=== PATIENT | male | born 1945 | race Caucasian/White ===

== ENCOUNTER 2017-08-20 09:00 | Inpatient (IN) | payer OTHER ==
[~2017-08-20] VITALS: Ht 177.8 cm; Wt 109.2 kg
[2017-09-02] MEDS ORDERED: COQ-50CA2 PO (11:35)
[2017-09-02] MEDS ORDERED: DICL75TA PO (11:35)
[2017-09-02] MEDS ORDERED: AMLO2.5T PO (11:35)
[2017-09-02] MEDS ORDERED: GLUC500T4 PO (11:35)
[2017-09-02] MEDS ORDERED: OMEG100046 PO (11:35)
[2017-09-02] MEDS ORDERED: ATOR20TA15 PO (11:35)
[2017-10-22] MEDS ORDERED: METOPROLOL TARTRATE 25 MG TAB PO PRN (06:15)
[2017-10-22] MEDS ORDERED: POVIDONE IODINE 5% (ANTISEPSIS KIT) 4 APPLICATIONS EACH NARE PRN (06:15)
[2017-10-22] MEDS ORDERED: ceFAZolin 2 GM PREMIX 50 ML IV SCH (06:15)
[2017-10-22] MEDS ORDERED: VANCOMYCIN 1000 MG/NS 250 ML (for <70 kg) IV SCH ×2 (06:15)
[2017-10-22] MEDS ORDERED: CHLORHEXIDINE GLUCONATE 4% SOLN 120 ML BTL TOPICAL SCH (06:15)
[2017-10-22] MEDS ORDERED: SODIUM CHLORID 0.9% 500 ML IV PRN (06:15)
[2017-10-22] MEDS ORDERED: LACTATED RINGER'S 1000 ML IV PRN (06:15)
[2017-10-22] MEDS ORDERED: CHLORHEXIDINE GLUCONATE 2 % 1 PACK (2 CLOTHS) TOPICAL PRN (06:15)
[2017-10-22] MEDS ORDERED: GENTAMICIN SULFATE 80 MG/2 ML VIAL ONE (08:34)
[2017-10-22] MEDS ORDERED: EXPAREL PERI-ARTICULAR INJECTION (TOTAL VOL. 60 ML) P-ARTICULR SCH ×2 (09:15)
[2017-10-22] MEDS ORDERED: TRANEXAMIC ACID IV SCH (09:16)
[2017-10-22] MEDS ORDERED: SODIUM CHLORIDE 0.9% IV SCH (09:16)
[2017-10-22] MEDS ORDERED: ACETAMINOPHEN 1000 MG/100 ML 100 ML IV ONE (09:51)
[2017-10-22] MEDS ORDERED: FAMOTIDINE 20 MG/2 ML VIAL ONE (09:51)
[2017-10-22] MEDS ORDERED: DEXAMETHASONE SOD PHOS 4 MG/ML VIAL ONE (09:51)
[2017-10-22] MEDS ORDERED: ASPI-183 PO (11:32)
[2017-10-22] MEDS ORDERED: XARE10TA PO (11:32)
[2017-10-22] MEDS ORDERED: HYDR-3583 PO (11:32)
[2017-10-22] MEDS ORDERED: WALKER/ADULT/FO1 MIS (11:32)
--- NOTE | 2017-10-22 11:32 | HHI.FF ---
Face to Face Verification Diagnosis: (1) Status post total replacement of right hip Physical Therapy Gait training Hip: Total hip, Protocol: Right Right LE Weight Bearing: WB as tolerated Nursing Dressing Changes: Daily dressing change, Coverderm/Primapore (add Xeroform POD 10) I have seen patient Jimmy Navarro on 10/22/17. My clinical findings support the need for the requested home health care services because: Ltd mobility - disease progression I certify that my clinical findings support that this patient is homebound because: Post-op weakness Jovany Graf/Dean Of Admissions PA Oct 22, 2017 11:32
[2017-10-22] MEDS ORDERED: ONDANSETRON HCL 4 MG/2 ML VIAL IVP PRN (12:00)
[2017-10-22] MEDS ORDERED: Post-op Orders (for Pharmacy) MISC XX ONE (12:00)
[2017-10-22] MEDS ORDERED: MORPHINE SULFATE 4 MG/ML INJ IV PUSH PRN (12:00)
[2017-10-22] MEDS ORDERED: ACETAMINOPHEN/HYDROcodone 325 MG/10 MG TAB PO PRN (12:00)
[2017-10-22] MEDS ORDERED: NALOXONE HCL 0.4 MG/ML AMP IV PUSH PRN (12:00)
--- NOTE | 2017-10-22 12:05 | PD.OP ---
cc: Israel Gray MD Operative Report Date of Surgery: Oct 22, 2017 Preoperative Diagnosis: Right hip osteoarthritis Postoperative Diagnosis: Procedure: Right total hip arthroplasty via anterior approach Anesthesia: Gen. Surgeon: Israel Gray Public Service Director(s): LORY Willingham PA-C The surgical procedure was assisted by my physician transition assistant. My P.A. presence was necessary throughout this case for the manipulation and positioning of the surgical extremity. My P.A. was assisting me throughout the duration of this procedure. The skill set of a physician transition assistant was medically necessary to complete this procedure. During the surgical case the surgical territory manager was working at the back table and the physician transition assistant was directly assisting me. Operation and Findings: PLAN OF ACTIVITY Weight bear as tolerated. DRAINS: 7-mm DIALLO drain. IMPLANTS USED DePuy Corail size [13] collared stem with a size [52] [place] Gription cup, [52 /36] Altrx poly liner, and a [36+1] ceramic Biolox ceramic head. DETAILS OF PROCEDURE: This patient has a long history of hip pain. Patient was found to have severe osteoarthritis. The patient had radiographic evidence of joint space narrowing with [id number] arthritis and osteophytes around the acetabulum as well as the femoral head. There was also some cystic changes. The patient failed conservative treatment with pain medications, anti-inflammatories, physical therapy, assistive devices including a cane, as well as therapeutic injection of the hip. Patient's hip arthritis was limiting his ability to ambulate and perform activities of daily living. The patient wished to proceed with surgery and informed consent was obtained. Operative site was marked. I discussed both posterior approach and anterior approach with the patient and decision was made for anterior approach. Patient was brought to OR and placed on OR table. IV sedation and general anesthesia was administered by anesthesiologist. Patient positioned on a Aliya table and was given IV antibiotics. Time-out procedure was performed. The hip and thigh were prepped with alcohol followed by Hibiclens. The thigh was draped in the usual sterile fashion. Clean Air Suite was used for this procedure. The procedure began with a 5-inch incision over the anterolateral thigh. Subcutaneous tissue was dissected with Bovie. The fascia over the tensa fasciae latae was incised. Care was taken to avoid injury to the lateral femoral cutaneous nerve. The tensor muscle was retracted laterally. Sartorius was retracted medially. Retractors were now placed. The reflected head of the rectus is now elevated. A capsulotomy was performed over the anterior head capsule. Sutures were placed to help retract the capsule. At this point the femoral head and neck were identified. With soft tissue protected, oscillating saw was used to make a cut through the femoral neck, the femoral head was now removed. At this point attention was turned to preparation of the acetabulum. The labrum was excised. The acetabulum was sequentially reamed up to size [52]. A [place] cup was now placed. Fluoroscopy was used to aid in identification of appropriate version. Cup was fully impacted and found to have excellent fit. Hole eliminator was now placed. The liner was now impacted into the cup. At this point the hip was externally rotated. A hook was placed around the proximal femur. The capsule was released off the lateral and medial femur. The hip was now extended and adducted. Retractors were placed around the proximal femur to allow for exposure. A box osteotome was used to remove the lateral cortex of the femoral neck. A broach was used to help lateralize the prosthesis. Canal finder was used to create a path down the canal. Next, the canal was sequentially broached up to size [13]. This was found to be an excellent fit. Calcar planer was placed. A standard head was placed, and the hip was reduced. The hip was found to have excellent stability with good range of motion. The leg lengths were measured under fluoroscopy and found to be equal compared to preoperatively. Trial broach was removed. The Corail stem was opened. Stem was fully impacted into the proximal femur in appropriate version. The femoral head was placed. The hip was again reduced. Fluoroscopy confirmed excellent alignment of prosthesis. The wound was thoroughly irrigated and capsule was closed with #1 Vicryl. The fascia over the tensor fasciae muscle was closed with #1 Vicryl, subcutaneous tissue was closed with 3-0 Vicryl and the skin was closed with gertrudis and Dermabond skin closure. The capsule layers, muscle, and subcutaneous tissue were injected with a mixture of saline and bupivicaine. Dressings were applied. The patient was transferred to Recovery Room in stable condition. Israel Gray MD Oct 22, 2017 12:05
[2017-10-22] MEDS ORDERED: DO NOT ADM ANY ANTICOAGULANT DRUGS PRN (12:29)
[2017-10-22] MEDS ORDERED: *morphine SULFATE 8 MG/ML PERIprocedure ONLY ONE ×2 (12:37→12:51)
[2017-10-22] MEDS ORDERED: PILL SPLITTER OTHER PRN (13:00)
[2017-10-22] MEDS: LACTATED RINGER'S 1000 ML INJ 1,000 ML IV SCH ×2 (13:30→23:57)
[2017-10-22] MEDS: KETOROLAC TROMETHAMINE 30 MG/ML (IVP) VIAL IV PUSH SCH ×2 (13:30→23:56)
[2017-10-22] MEDS ORDERED: TRANEXAMIC ACID INJ 1,000 MG in SODIUM CHLORIDE 0.9% INJ 100 ML IV ONE (13:30)
--- NOTE | 2017-10-22 13:51 | RADRPT ---
EXAM DATE/TIME: 10/22/2017 10:49 [facility] COMPARISON: No previous studies available for comparison. INDICATIONS : Right total hip arthroplasty. MEDICAL HISTORY : Unobtainable. SURGICAL HISTORY : Unobtainable. ENCOUNTER: Initial ACUITY: 1 day PAIN SCORE: Non-responsive. LOCATION: Right hip FINDINGS: The patient is status post a total hip arthroplasty with a bipolar prosthesis. Prosthesis is well-sea corazon. Alignment is anatomic. A fracture is not appreciated. CONCLUSION: Anatomic alignment. Cm Alcala MD FACR on October 22, 2017 at 13:48 Board Certified Radiologist. This report was verified electronically.
--- NOTE | 2017-10-22 13:57 | RADRPT ---
EXAM DATE/TIME: 10/22/2017 12:53 [facility] COMPARISON: HIP RIGHT (AP&LAT 2/3VWS) WO AP PELVIS, October 22, 2017, 10:49. INDICATIONS : Post op right total hip. MEDICAL HISTORY : None. SURGICAL HISTORY : None. ENCOUNTER: Initial ACUITY: 1 day PAIN SCORE: 8/10 LOCATION: Right Hip FINDINGS: The patient is status post a total hip arthroplasty with a bipolar prosthesis. Prosthesis is well-sea corazon. Alignment is anatomic. A fracture is not appreciated. CONCLUSION: Anatomic alignment. Surgical drain is evident. Cm Alcala MD FACR. Cm Alcala MD FACR on October 22, 2017 at 13:54 Board Certified Radiologist. This report was verified electronically.
[2017-10-22 14:40] VITALS: BP 114/68; PULSE 56; RESP 17; TEMP 95.5; O2SAT 97
[2017-10-22] MEDS: ceFAZolin 2 GM PREMIX 50 ML IV SCH ×2 (17:00→23:57)
[2017-10-22] MEDS: ACETAMINOPHEN/HYDROcodone 325 MG/7.5 MG TAB PO PRN (18:08)
[2017-10-22 20:06] VITALS: BP 90/57; PULSE 59; RESP 18; TEMP 97.6; O2SAT 95
[2017-10-22] MEDS ORDERED: ATORVASTATIN 20 MG TAB PO SCH (21:00)
[2017-10-22] MEDS: VANCOMYCIN INJ 1,000 MG in SODIUM CHLOR 0.9% 250 ML INJ 250 ML IV SCH (21:52)
[2017-10-23] VITALS (7 sets, daily range): BP systolic 92–117; BP diastolic 53–66; PULSE 50–72; RESP 17–18; TEMP 96.2–98; O2SAT 94–96
[2017-10-23] MEDS: ceFAZolin 2 GM PREMIX 50 ML IV SCH (05:00)
--- NOTE | 2017-10-23 06:57 | HHI.FF ---
Face to Face Verification Diagnosis: (1) Status post total replacement of right hip Physical Therapy Hip: Total hip, Protocol: Right, Posterior hip precautions Right LE Weight Bearing: WB as tolerated Nursing Dressing Changes: Daily dressing change, Xeroform (begin daily Xeroform on POD 10), Coverderm/Primapore I have seen patient Jimmy Navarro on 10/23/17. My clinical findings support the need for the requested home health care services because: Limited ability to care for self I certify that my clinical findings support that this patient is homebound because: Post-op weakness Estevan Feng Jr. Oct 23, 2017 06:57
--- NOTE | 2017-10-23 07:02 | PD.ORT.PN ---
Subjective Subjective Remarks Doing well with physical therapy. Has been out of bed to the bathroom several times. Drain was pulled accidentally. Mild drainage Objective Vitals Vital Signs Date Time Temp Pulse Resp B/P (MAP) Pulse Ox O2 Delivery O2 Flow Rate FiO2 10/23/17 04:03 97.3 72 18 94/54 (67) 95 10/23/17 01:37 96 home cpap 2.00 10/23/17 00:05 96.2 65 18 92/66 (75) 95 10/22/17 20:06 97.6 59 18 90/57 (68) 95 10/22/17 18:18 2.00 10/22/17 14:40 95.5 56 17 114/68 (83) 97 10/22/17 13:45 60 16 129/69 (89) 96 Nasal Cannula 2 10/22/17 13:30 54 16 124/65 (84) 95 Nasal Cannula 2 10/22/17 13:15 66 16 118/60 (79) 95 Nasal Cannula 2 10/22/17 13:00 58 16 143/60 (87) 94 Nasal Cannula 2 10/22/17 12:45 66 16 105/55 (72) 95 Nasal Cannula 2 10/22/17 12:30 97.5 70 16 111/62 (78) 95 Nasal Cannula 2 10/22/17 07:20 98.2 55 16 155/90 (111) 97 I/O 10/22/17 10/22/17 10/22/17 10/23/17 10/23/17 10/23/17 07:00 15:00 23:00 07:00 15:00 23:00 Intake Total 1200 ml 600 ml Output Total 300 ml 250 ml Balance 900 ml 350 ml Intake Oral 600 ml Other 1200 ml Output Urine Total 250 ml Drainage Total 50 ml Estimated Blood Loss 250 ml # Bowel Movements 0 Imaging Last 24 hours Impressions Hip and Pelvis X-Ray 10/22/17 0817 Signed Impressions: Service Date/Time: Sunday, October 22, 2017 12:53 - CONCLUSION: Anatomic alignment. Surgical drain is evident. Cm Alcala MD Objective Remarks Right lower extremity: Clean dressings with mild drainage. Compartments soft. Distally intact sensation good capillary refills with active dorsal flexion plantar flexion of foot. Mild tenderness with passive internal/external rotation of the hip. Assessment & Plan Assessment and Plan Right total hip arthroplasty anterior approach POD 1 Weightbearing as tolerated with physical therapy twice a day Dry dressings over incision and Xeroform over drain site with reinforced ABDs Lovenox then convert to Xarelto after discharge Case management for home health Incentive spirometry Discharge to home today if doing well with physical therapy Follow-up with Dr. Gray or PA in 2 weeks Estevan Feng Jr. Oct 23, 2017 07:02
[2017-10-23 07:34] LABS: HEMATOCRIT 36.9 % (39.0-51.0); REVIEW FLAG FINAL
[2017-10-23] MEDS ORDERED: amLODIPine BESYLATE 5 MG TAB PO SCH (09:00)
[2017-10-23] MEDS: VANCOMYCIN INJ 1,000 MG in SODIUM CHLOR 0.9% 250 ML INJ 250 ML IV SCH (10:08)
[2017-10-23] MEDS: ACETAMINOPHEN/HYDROcodone 325 MG/7.5 MG TAB PO PRN ×2 (10:19→15:30)
[2017-10-23] MEDS ORDERED: ENOXAPARIN SODIUM 40 MG/0.4 ML SYRINGE SQ SCH (11:30)
[2017-10-23] MEDS: KETOROLAC TROMETHAMINE 30 MG/ML (IVP) VIAL IV PUSH SCH (12:38)
[2017-10-23] MEDS: LACTATED RINGER'S 1000 ML INJ 1,000 ML IV SCH (12:59)
[2017-10-23] MEDS ORDERED: MAGNESIUM HYDROXIDE SUSP 30 ML CUP PO ONE (15:15)
[2017-10-23] MEDS ORDERED: DOCUSATE SODIUM 100 MG CAP PO SCH (21:00)
--- NOTE | 2017-10-24 07:27 | HHI.DS ---
Discharge Summary Admission Date Oct 22, 2017 at 05:50 Discharge Date: Oct 23, 2017 Admitting Diagnosis Right hip osteoarthritis Diagnosis: (1) Status post total replacement of right hip Diagnosis: Principal ICD Codes: Z96.641 - Presence of right artificial hip joint Procedures Right anterior total hip arthroplasty CBC/BMP: 10/23/17 0659 Significant Findings Laboratory Tests Test 10/23/17 06:59 Hemoglobin 12.6 GM/DL (13.0-17.0) Hematocrit 36.9 % (39.0-51.0) PE at Discharge Right lower extremity: Clean dressings with mild drainage. Compartments soft. Distally intact sensation good capillary refills with active dorsal flexion plantar flexion of foot. Mild tenderness with passive internal/external rotation of the hip. Hospital Course Patient was admitted from outpatient basis for elective right total hip arthroplasty. He has a significant history of right hip osteoarthritis and has failed conservative treatment which include anti-inflammatories, activity modification, and intra-articular steroid injections. He tolerated the procedure well was admitted 6 north. He was out of bed on postoperative day 0 was ambulating with therapy. By postoperative day 1, his pain was well- controlled he was out of bed with a walker. He was he will nailing stable, pain well controlled ambulating well with therapy. He was fit for discharge home with home healthcare. He'll be discharged home today in follow-up in the office of Dr. Gray or his PA in 2 weeks. He'll remain fully weightbearing. He'll or come ambulating further distances. He'll maintain his dressing and not have any dressing changes due to the nature of his dressing. Pt Condition on Discharge: Good Discharge Disposition: Disch w/ Home Health Serv Discharge Instructions Diet Instructions: As Tolerated, No Restrictions Activities You Can Perform: Weight Bearing as [place] Follow up Referrals: Orthopedics - 2 Weeks @ [facility] with Israel Gray MD SNF/[facility]/ with [facility] - [phone] New Medications: Aspirin (Aspirin) 325 Mg Tab 325 MG PO DAILY for blood clot prevention, #14 TAB 0 Refills Hydrocodone-Acetaminophen (Hydrocodone-Acetaminophen) 10-325 mg Tab 1 TAB PO Q4H PRN for PAIN, #60 TAB 0 Refills Rivaroxaban (Xarelto) 10 Mg Tab 10 MG PO DAILY for Blood Clot Prevention for 14 Days, #14 TAB 0 Refills Walker/Adult/Folding (Walker/Adult/Folding) 1 Mis Mis EA .ROUTE DIRECTED, #1 0 Refills Continued Medications: Amlodipine (Amlodipine) 2.5 Mg Tab 2.5 MG PO DAILY for Blood Pressure Management, #30 TAB 0 Refills Atorvastatin (Atorvastatin) 20 Mg Tab 20 MG PO HS for Cholesterol Management, #30 TAB 0 Refills Coenzyme Q10 (Ubidecarenone) (Coq-10) 50 Mg Cap 1 CAP PO DAILY Glucosamine-Chondroitin (Glucosamine-Chondroitin) 500-400 Mg Tab 1 TAB PO DAILY for Herbal Supplements, TAB 0 Refills [place]-3/Dha/Epa/Fish Oil (Fish Oil 1,000 mg Softgel) 1,000 Mg (120 Mg-180 Mg) Capsule 1 CAP PO DAILY Discontinued Medications: Diclofenac Sodium DR (Diclofenac Sodium DR) 75 Mg Tabdr 75 MG PO DAILY, #30 TAB 0 Refills Jovany Graf/First Swapnil BROOKS Oct 24, 2017 07:27
== END 2017-10-23 19:14 | disposition home health service (06) | DRG 470 ==
LOC: EDUNIT# 09-10 07:00 → HSDI 10-22 05:50 → N06B 10-22 14:47
PROVIDERS: ADMIT Orthopaedic Surgery Orthopaedic Trauma; ATTEND Orthopaedic Surgery Orthopaedic Trauma
PROC: 0SR904A Replacement of Right Hip Joint with Ceramic on Polyethylene Synthetic Substitute, Uncemented, Open Approach (ICD-10-PCS; principal; 2017-10-22 10:14)
DX: M16.11 Unilateral primary osteoarthritis, right hip (principal); I10 Essential (primary) hypertension; E78.5 Hyperlipidemia, unspecified; G47.30 Sleep apnea, unspecified; Z87.891 Personal history of nicotine dependence
CPT/HCPCS: 73501; 73502; 76000; 85014; 85018; 86850; 86900; 86901; C9290; J0131; J0690; J1100; J1580; J1650; J1885; J2270; J3370; J7050; J7120; L1830

== ENCOUNTER → 2017-09-02 | Outpatient (CLI) | payer OTHER ==
[~2017-09-02] MED LIST: AMLO2.5T PO; ATOR20TA15 PO; COQ-50CA2 PO; DICL75TA PO; GLUC500T4 PO; OMEG100046 PO
== END ==
LOC: CPRE 11:16
PROVIDERS: ATTEND Orthopaedic Surgery Orthopaedic Trauma
DX: Z01.810 Encounter for preprocedural cardiovascular examination (principal); Z01.811 Encounter for preprocedural respiratory examination; Z01.812 Encounter for preprocedural laboratory examination; Z01.818 Encounter for other preprocedural examination; Z96.60 Presence of unspecified orthopedic joint implant; Z13.9 Encounter for screening, unspecified; Z79.01 Long term (current) use of anticoagulants; M79.609 Pain in unspecified limb

== ENCOUNTER 2017-10-27 09:10 | Emergency (ER) | payer OTHER ==
[~2017-10-27] VITALS: Ht 177.8 cm; Wt 105.0 kg
[~2017-10-27 09:10] MED LIST changes: +ASPI-183 PO; -DICL75TA PO; +HYDR-3583 PO; +WALKER/ADULT/FO1 MIS; +XARE10TA PO
[2017-10-27 09:13] VITALS: BP 176/89; PULSE 61; RESP 14; TEMP 98.1; O2SAT 95
--- NOTE | 2017-10-27 09:48 | PD ---
HPI Chief Complaint: irregular heartbeat Time Seen by Provider: 09:34 Travel History International Travel<30 days: No Contact w/Intl Traveler<30days: No Traveled to known affect area: No History of Present Illness HPI This patient presents because the home health nurse came to check on him. He recently had right hip replacement. They felt like his heartbeat was irregular when they checked his pulse. He does not have chest pain or shortness of breath or palpitations or presyncopal symptoms. He feels relatively well other than some soreness in his right hip. He is ambulatory. He had preoperative studies including echocardiogram and stress test in August 2017. Symptoms severity today here is mild. No alleviating factors. No exacerbating factors. Duration 3 days PFSH Past Medical History Heart Rhythm Problems: Yes (frequent pvc's pac's) Cancer: No Cardiovascular Problems: Yes (murmur) Diabetes: No Endocrine: No Genitourinary: No Hepatitis: No Hiatal Hernia: No Hypertension: Yes Immune Disorder: No Medical other: Yes (chol) Musculoskeletal: Yes (OA) Neurologic: No Psychiatric: No Reproductive: No Respiratory: No Thyroid Disease: No Past Surgical History Abdominal Surgery: No AICD: No Cardiac Surgery: No Ear Surgery: No Endocrine Surgery: No Eye Surgery: No Genitourinary Surgery: Yes (KIDNEY STONE REMOVAL) Gynecologic Surgery: Yes (vesectomy) Joint Replacement: No Oral Surgery: Yes (T/A) Pacemaker: No Thoracic Surgery: No Other Surgery: Yes Social History Alcohol Use: No (not for a couple weeks) Tobacco Use: No Substance Use: No Allergies-Medications (Allergen,Severity, Reaction): Coded Allergies: Sulfa (Sulfonamide Antibiotics) (Verified Allergy, Severe, RASH, 10/27/17) Reported Meds & Prescriptions Reported Meds & Active Scripts Active Xarelto (Rivaroxaban) 10 Mg Tab 10 Mg PO DAILY 14 Days Hydrocodone-Acetaminophen 10-325 mg Tab 1 Tab PO Q4H PRN Walker/Adult/Folding (Device) 1 Mis Mis Ea .ROUTE DIRECTED Reported Amlodipine (Amlodipine Besylate) 2.5 Mg Tab 2.5 Mg PO DAILY Review of Systems General / Constitutional: No: Fever Eyes: No: Visual changes HENT: No: Headaches Cardiovascular: Positive: Irregular Rhythm, No: Chest Pain or Discomfort Respiratory: No: Shortness of Breath Gastrointestinal: No: Abdominal Pain Genitourinary: No: Dysuria Musculoskeletal: Positive: Arthralgias, Limited ROM, Pain Skin: No Rash Neurologic: No: Weakness Psychiatric: No: Depression Endocrine: No: Polydipsia Hematologic/Lymphatic: No: Easy Bruising Physical Exam Narrative GENERAL: Well-nourished, well-developed patient in no apparent distress. SKIN: Focused skin assessment reveals no rash and nodules. Skin is Warm and dry. HEAD: Atraumatic. Normocephalic. EYES: Pupils equal and round. No scleral icterus. No injection or drainage. ENT: No nasal bleeding or discharge. Mucous membranes pink and moist. NECK: Trachea midline. No JVD. CARDIOVASCULAR: Regular rate and rhythm. No murmur appreciated. He has PVCs, corresponding with quadrigeminy on the pipe fitter soft copper RESPIRATORY: No accessory muscle use. Clear to auscultation. Breath sounds equal bilaterally. GASTROINTESTINAL: Abdomen soft, non-tender, nondistended. Hepatic and splenic margins not palpable. MUSCULOSKELETAL: No obvious deformities. No clubbing. No cyanosis. No edema. NEUROLOGICAL: Awake and alert. No obvious cranial nerve deficits. Motor grossly within normal limits. Normal speech. PSYCHIATRIC: Appropriate mood and affect; insight and judgment normal. Data Data Last Documented VS Vital Signs Date Time Temp Pulse Resp B/P (MAP) Pulse Ox O2 Delivery O2 Flow Rate FiO2 10/27/17 09:22 18 Room Air 10/27/17 09:13 98.1 61 176/89 (118) 95 Orders Orders Electrocardiogram (10/27/17 ) Community Recreation Coordinator / Telemetry [email or web address] (10/27/17 09:34) Iv Access Insert/Monitor (10/27/17 09:34) Complete Blood Count With Diff (10/27/17 09:34) Basic Metabolic Panel (Bmp) (10/27/17 09:34) Labs Laboratory Tests Test 10/27/17 09:37 White Blood Count 7.7 TH/MM3 Red Blood Count 4.09 MIL/MM3 Hemoglobin 12.9 GM/DL Hematocrit 36.9 % Mean Corpuscular Volume 90.2 FL Mean Corpuscular Hemoglobin 31.5 PG Mean Corpuscular Hemoglobin Concent 34.9 % Red Cell Distribution Width 13.0 % Platelet Count 179 TH/MM3 Mean Platelet Volume 8.3 FL Neutrophils (%) (Auto) 69.1 % Lymphocytes (%) (Auto) 15.1 % Monocytes (%) (Auto) 10.8 % Eosinophils (%) (Auto) 4.6 % Basophils (%) (Auto) 0.4 % Neutrophils # (Auto) 5.3 TH/MM3 Lymphocytes # (Auto) 1.2 TH/MM3 Monocytes # (Auto) 0.8 TH/MM3 Eosinophils # (Auto) 0.4 TH/MM3 Basophils # (Auto) 0.0 TH/MM3 CBC Comment DIFF FINAL Differential Comment Blood Urea Nitrogen 16 MG/DL Creatinine 0.99 MG/DL Random Glucose 103 MG/DL Calcium Level 8.5 MG/DL Sodium Level 136 MEQ/L Potassium Level 4.5 MEQ/L Chloride Level 102 MEQ/L Carbon Dioxide Level 28.9 MEQ/L Anion Gap 5 MEQ/L Estimat Glomerular Filtration Rate 75 ML/MIN [facility] Medical Decision Making Medical Screen Exam Complete: Yes Emergency Medical Condition: Yes Medical Record Reviewed: Yes Differential Diagnosis A. fib, PVCs, SVT, anxiety, electrolyte abnormality Narrative Course I have reviewed the patient's electronic medical record. Reviewed his orthopedic discharge summary from a week ago IV placed CBC is normal Metabolic profile is normal I reviewed his EKG which shows sinus rhythm with occasional PVC Extended cardiac monitoring reveals quadrigeminy at times and also sinus rhythm with occasional PVC Patient has not had any chest pain or ACS type symptoms. He also had recent stress testing. His ejection fraction is normal. Recent echo was done. 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 Med/Other Pt SpecificInfo: Other Disposition: 01 DISCHARGE HOME Condition: Stable Al Quesada MD Oct 27, 2017 09:47
[2017-10-27 09:55] LABS: AUTOMATED NEUTROPHIL # 5.3 TH/MM3 (1.8-7.7); BASOPHIL % 0.4 % (0.0-2.0); EOSINOPHIL # 0.4 TH/MM3 (0-0.4); EOSINOPHIL % 4.6 % (0.0-4.0); HEMATOCRIT 36.9 % (39.0-51.0); HEMO FLAGS DIFF FINAL; LYMPH % 15.1 % (9.0-44.0); LYMPHOCYTE # 1.2 TH/MM3 (1.0-4.8); MEAN CELL VOLUME 90.2 FL (80.0-100.0); MEAN CORPUSCULAR HEMOGLOBIN 31.5 PG (27.0-34.0); MEAN CORPUSCULAR HGB CONC 34.9 % (32.0-36.0); MONO % 10.8 % (0.0-8.0); NEUT % 69.1 % (16.0-70.0); PLATELET COUNT 179 TH/MM3 (150-450); RED BLOOD COUNT 4.09 MIL/MM3 (4.50-5.90); WHITE BLOOD COUNT 7.7 TH/MM3 (4.0-11.0)
[2017-10-27 10:21] LABS: BICARBONATE 28.9 MEQ/L (21.0-32.0); POTASSIUM 4.5 MEQ/L (3.5-5.1)
--- NOTE | 2017-10-28 17:42 | EKG ---
Date Performed: 10/27/2017 Time Performed: 09:28:45 PTAGE: 72 years EKG: Sinus rhythm WITH OCCASIONAL VENTRICULAR PREMATURE COMPLEXES NONSPECIFIC ST & T-WAVE ABNORMALITY ABNORMAL ECG NO PREVIOUS TRACING DOCTOR: Domingo Mello Interpretating Date/Time 10/28/2017 17:40:59
== END 2017-10-27 11:43 | disposition home or self-care (01) ==
LOC: NEPE 09:10
DX: I49.3 Ventricular premature depolarization (principal); I10 Essential (primary) hypertension; R94.31 Abnormal electrocardiogram [ECG] [EKG]
CPT/HCPCS: 80048; 85025; 93005; 99284

== ENCOUNTER 2019-01-09 13:58 | Observation (INO) ==
[2019-01-09] MEDS ORDERED: Sod Chloride 0.9% Inj 1,000 ML IV.SIG ONE (15:41)
[2019-01-09 16:26] LABS: Baso % (Auto) 0.4 % (0.0-2.0); Eos # (Auto) 0.2 th/mm3 (0.0-0.4); Eos % (Auto) 2.1 % (0.0-4.0); Hematocrit 37.7 % (39.0-51.0); Hemoglobin 12.9 gm/dL (13.0-17.0); Lymph # (Auto) 0.8 th/mm3 (1.0-4.8); Lymph % (Auto) 8.8 % (9.0-44.0); Mean Corpuscular HGB Conc 34.3 % (32.0-36.0); Mean Corpuscular Hemoglobin 30.6 pg (27.0-34.0); Mean Corpuscular Volume 89.4 fL (80.0-100.0); Mean Platelet Volume 7.9 fL (7.0-11.0); Mono # (Auto) 0.6 th/mm3 (0.0-0.9); Mono % (Auto) 6.4 % (0.0-8.0); Neut # (Auto) 7.9 th/mm3 (1.8-7.7); Neut % (Auto) 82.3 % (16.0-70.0); Platelet Count 178 th/mm3 (150-450); Red Blood Count 4.22 mil/mm3 (4.50-5.90); Red Cell Distribution Width 13.4 % (11.6-17.2); White Blood Count 9.6 th/mm3 (4.0-11.0)
[2019-01-09 16:36] LABS: Activated Partial Thrombo Time 23.8 sec (23.4-31.7)
[2019-01-09 16:48] LABS: Alanine Aminotransferase 24 U/L (12-78); Albumin 3.5 g/dL (3.4-5.0); Anion Gap 8 meq/L (5-15); Aspartate Aminotransferase 36 U/L (15-37); Blood Urea Nitrogen 26 mg/dL (7-18); Calcium 7.9 mg/dL (8.5-10.1); Carbon Dioxide 24.2 meq/L (21.0-32.0); Chloride 108 meq/L (98-107); Glomerular Filtration Rate 60 mL/min (>89); Glucose,Random 98 mg/dL (74-106); Lipase 111 U/L (73-393); Magnesium 2.3 mg/dL (1.5-2.5); Potassium 4.8 meq/L (3.5-5.1); Sodium 140 meq/L (136-145)
[2019-01-09 16:51] LABS: Alkaline Phosphatase 74 U/L (45-117)
[2019-01-09 17:30] LABS: Bilirubin,Urine Negative (Negative); Clarity,Urine Clear (Clear); Color,Urine Yellow (Yellw/Straw); Glucose,Urine (UA) Negative (Negative); Leukocyte Esterase,Urine Trace (Negative); Mucus,Urine Few /lpf (Occasional); Nitrite,Urine Negative (Negative); Specific Gravity,Urine 1.025 (1.002-1.035)
--- NOTE | 2019-01-09 17:42 | CT ---
EXAM DATE: 01/09/2019 5:36 PM EST AGE/SEX: 73 years / Male INDICATIONS: Abdominal pain. Diarrhea. CLINICAL DATA: This is the patient's initial encounter. Patient reports that signs and symptoms have been present for 1 day and indicates a pain score of 3/10. MEDICAL/SURGICAL HISTORY: Hypertension. None. ORAL CONTRAST: No oral contrast ingested. RADIATION DOSE: 16.50 CTDI (mGy) COMPARISON: No prior exams available for comparison. TECHNIQUE: Multiple contiguous axial images were obtained through the abdomen and pelvis following b olus infusion of 100 ml Omnipaque 350 (iohexol) nonionic water-soluble contrast as a single exam do se. No oral contrast ingested. Using automated exposure control and adjustment of the mA and/or kV a ccording to patient size, radiation dose was kept as low as reasonably achievable to obtain optimal d iagnostic quality images. DICOM format image data is available electronically for review and compari son. FINDINGS: Abdomen CT: The spleen, pancreas, adrenals are unremarkable. There are simple cysts in both kidneys the largest m easures 4.2 cm on the right. The liver appears fatty without focal lesions for technique. There is no evidence for any appreciabl e pathological adenopathy, free fluid, or bowel obstruction. There is prominent fat underneath the um bilicus without evidence for bowel herniation. Tiny pericardial effusion is seen probably of no clini sonam significance. Pelvic CT: There is no evidence for mass, abscess formation, or any significant adenopathy within the pelvis. Th ere are numerous diverticuli within the colon mainly the sigmoid colon without signs of diverticuliti s for technique. There are hypertrophic changes involving the left iliac bone chronic in nature. Ther e is evidence for total hip arthroplasty on the right. There are atherosclerotic calcifications invol ving the aorta and iliac arteries chronic in nature. There is moderate amount of stool in the colon. There is prominent fat within bilateral inguinal sherry ls without evidence for bowel herniation. The prostate gland measures 4.5 x 5.7 cm in AP and transverse diameters inhomogeneous in appearance a nd nonspecific. CONCLUSION: Fatty liver, diverticulosis, renal cysts. Electronically signed by: Val Rico MD Board Certified Radiologist 01/09/2019 5:41 PM EST
--- NOTE | 2019-01-09 19:32 | ED ---
HPI General Chief complaint: GI Bleed Stated complaint: GI/Weakness Complaint Time Seen by Provider: 01/09/19 15:23 Source: patient Mode of arrival: ambulatory Limitations: no limitations History of Present Illness HPI narrative: Patient is a 73-year-old male who comes in complaining of blood in his stool. He says that today he had 3 episodes of bloody diarrhea. He says he started to feel weak and dizzy afterwards. He also complains of some left lower quadrant abdominal pain. He says he was diagnosed with diverticulitis about 20 years ago, has not had an issue with it since. He denies fever or chills. He has not had any nausea or vomiting. Severity is moderate. Related Data Home Medications Medication Instructions Recorded Confirmed amlodipine 2.5 mg PO DAILY 01/09/19 01/09/19 aspirin [Aspir-81] 81 mg PO DAILY 01/09/19 01/09/19 Allergies Allergy/AdvReac Type Severity Reaction Status Date / Time Sulfa (Sulfonamide Allergy Severe RASH Verified 01/09/19 14:13 Antibiotics) Review of Systems ROS: all other systems reviewed are negative Constitutional Denies chills and Denies fever(s) ENT Denies dizziness Cardiovascular Denies chest pain and Denies dyspnea Respiratory Denies cough and Denies dyspnea Gastrointestinal Reports abdominal pain and Reports diarrhea Musculoskeletal Denies myalgias and Denies arthralgias Integumentary/Breasts Denies sores and Denies wounds Neurologic Denies focal weakness and Denies numbness [facility] Medical History Medical History Hypertension (Acute) Social History Social History Substance History: No History of Abuse Smoking Status: Never smoker How Often Do You Have a Drink Containing Alcohol: Never Recent Travel in [facility] within the Last 8 Weeks: No Recent Out of Country Travel within the Last 8 Weeks: No Immunization History Tetanus Immunization: <5 Years Exam Narrative Exam Narrative: GENERAL: Awake and alert, in no acute distress. SKIN: Focused skin assessment warm/dry. HEAD: Atraumatic. Normocephalic. EYES: Pupils equal and round. No scleral icterus. No injection or drainage. ENT: No nasal bleeding or discharge. Mucous membranes pink and moist. NECK: Trachea midline. No JVD. CARDIOVASCULAR: Regular rate and rhythm. No murmur appreciated. RESPIRATORY: No accessory muscle use. Clear to auscultation. Breath sounds equal bilaterally. GASTROINTESTINAL: Abdomen soft, nondistended. Tender to palpation of the LLQ. MUSCULOSKELETAL: No obvious deformities. No clubbing. No cyanosis. No edema. NEUROLOGICAL: Awake and alert. No obvious cranial nerve deficits. Motor grossly within normal limits. Normal speech. PSYCHIATRIC: Appropriate mood and affect; insight and judgment normal. Procedures Hemaprompt Stool Procedural Steps Taken: specimen placed in appropriate test area, developer placed on specimen and control areas and controls appropriately positive and negative Hemaprompt Stool Result: positive Additional Comments: bright red blood Course Initial Documented Vital Signs Temperature 97.5 F L 01/09/19 14:11 Pulse Rate 71 01/09/19 14:11 Respiratory Rate 20 01/09/19 14:11 Blood Pressure 106/54 L 01/09/19 14:11 Pulse Oximetry 96 01/09/19 14:11 Last Documented Vital Signs Temperature 97.5 F L 01/09/19 14:11 Pulse Rate 66 01/09/19 18:19 Respiratory Rate 18 01/09/19 18:19 Blood Pressure 128/75 01/09/19 18:19 Pulse Oximetry 98 01/09/19 18:19 Medical Decision Making MDM Narrative Medical decision making narrative: Patient is a 73-year-old male who comes in complaining of bloody diarrhea. Exam shows right red blood per rectum. IV established, labs sent. Labs show a hemoglobin of 12.9. CT abdomen pelvis performed shows diverticulosis without diverticulitis. I feel patient would benefit from observation stay to make sure he does not continue to bleed. Patient admitted for further management. Medical Screen Exam Complete: Yes Emergency Medical Condition: Yes Differential Diagnosis Differential Diagnosis: GI bleed versus diverticulitis versus colitis Medical Records Medical records reviewed: Yes I reviewed the patient's medical records. Lab Data Lab results reviewed: Yes I reviewed the patient's lab results. Result diagrams: 01/09/19 15:50 01/09/19 15:50 Lab Results 01/09/19 01/09/19 01/09/19 Range/Units 15:50 15:50 15:50 WBC 9.6 (4.0-11.0) th/mm3 RBC 4.22 L (4.50-5.90) mil/mm3 Hgb 12.9 L (13.0-17.0) gm/dL Hct 37.7 L (39.0-51.0) % MCV 89.4 (80.0-100.0) fL MCH 30.6 (27.0-34.0) pg MCHC 34.3 (32.0-36.0) % RDW 13.4 (11.6-17.2) % Plt Count 178 (150-450) th/mm3 MPV 7.9 (7.0-11.0) fL Neut % (Auto) 82.3 H (16.0-70.0) % Lymph % (Auto) 8.8 L (9.0-44.0) % Calhoun % (Auto) 6.4 (0.0-8.0) % Eos % (Auto) 2.1 (0.0-4.0) % Baso % (Auto) 0.4 (0.0-2.0) % Neut # (Auto) 7.9 H (1.8-7.7) th/mm3 Lymph # (Auto) 0.8 L (1.0-4.8) th/mm3 Calhoun # (Auto) 0.6 (0.0-0.9) th/mm3 Eos # (Auto) 0.2 (0.0-0.4) th/mm3 Baso # (Auto) 0.0 (0.0-0.2) th/mm3 WBC Differential . Differential Comment Auto diff final PT 10.0 (9.8-11.6) sec INR 1.0 Ratio APTT 23.8 (23.4-31.7) sec Sodium 140 (136-145) meq/L Potassium 4.8 (3.5-5.1) meq/L Chloride 108 H (98-107) meq/L Carbon Dioxide 24.2 (21.0-32.0) meq/L Anion Gap 8 (5-15) meq/L BUN 26 H (7-18) mg/dL Creatinine 1.19 (0.60-1.30) mg/dL Estimated GFR 60 L (>89) mL/min Random Glucose 98 (74-106) mg/dL Calcium 7.9 L (8.5-10.1) mg/dL Magnesium 2.3 (1.5-2.5) mg/dL Total Bilirubin 0.7 (0.2-1.0) mg/dL AST 36 (15-37) U/L ALT 24 (12-78) U/L Alkaline Phosphatase 74 (45-117) U/L Total Protein 7.0 (6.4-8.2) g/dL Albumin 3.5 (3.4-5.0) g/dL Lipase 111 (73-393) U/L Urine Color (Yellw/Straw) Urine Clarity (Clear) Urine pH (5.0-8.5) Ur Specific Nesbit (1.002-1.035) Urine Protein (Neg-Trace) mg/dL Urine Glucose (UA) (Negative) mg/dL Urine Ketones (Negative) mg/dL Urine Occult Blood (Negative) Urine Nitrate (Negative) Urine Bilirubin (Negative) Urine Urobilinogen (Less than 2) mg/dL Ur Leukocyte Esterase (Negative) Urine WBC (0-5) /hpf Urine Mucus (Occasional) /lpf Micro UA Comment Ur Microscopic Review Urine Culture Comments 01/09/19 Range/Units 16:42 WBC (4.0-11.0) th/mm3 RBC (4.50-5.90) mil/mm3 Hgb (13.0-17.0) gm/dL Hct (39.0-51.0) % MCV (80.0-100.0) fL MCH (27.0-34.0) pg MCHC (32.0-36.0) % RDW (11.6-17.2) % Plt Count (150-450) th/mm3 MPV (7.0-11.0) fL Neut % (Auto) (16.0-70.0) % Lymph % (Auto) (9.0-44.0) % Calhoun % (Auto) (0.0-8.0) % Eos % (Auto) (0.0-4.0) % Baso % (Auto) (0.0-2.0) % Neut # (Auto) (1.8-7.7) th/mm3 Lymph # (Auto) (1.0-4.8) th/mm3 Calhoun # (Auto) (0.0-0.9) th/mm3 Eos # (Auto) (0.0-0.4) th/mm3 Baso # (Auto) (0.0-0.2) th/mm3 WBC Differential Differential Comment PT (9.8-11.6) sec INR Ratio APTT (23.4-31.7) sec Sodium (136-145) meq/L Potassium (3.5-5.1) meq/L Chloride (98-107) meq/L Carbon Dioxide (21.0-32.0) meq/L Anion Gap (5-15) meq/L BUN (7-18) mg/dL Creatinine (0.60-1.30) mg/dL Estimated GFR (>89) mL/min Random Glucose (74-106) mg/dL Calcium (8.5-10.1) mg/dL Magnesium (1.5-2.5) mg/dL Total Bilirubin (0.2-1.0) mg/dL AST (15-37) U/L ALT (12-78) U/L Alkaline Phosphatase (45-117) U/L Total Protein (6.4-8.2) g/dL Albumin (3.4-5.0) g/dL Lipase (73-393) U/L Urine Color Yellow (Yellw/Straw) Urine Clarity Clear (Clear) Urine pH 5.0 (5.0-8.5) Ur Specific Nesbit 1.025 (1.002-1.035) Urine Protein Negative (Neg-Trace) mg/dL Urine Glucose (UA) Negative (Negative) mg/dL Urine Ketones Negative (Negative) mg/dL Urine Occult Blood Negative (Negative) Urine Nitrate Negative (Negative) Urine Bilirubin Negative (Negative) Urine Urobilinogen Less than 2 (Less than 2) mg/dL Ur Leukocyte Esterase Trace H (Negative) Urine WBC 1 (0-5) /hpf Urine Mucus Few H (Occasional) /lpf Micro UA Comment Culture not ind Ur Microscopic Review Not Reportable Urine Culture Comments Culture not ind Imaging Data Radiologist's impression: Abdomen/Pelvis CT 01/09/19 15:41 CONCLUSION: Fatty liver, diverticulosis, renal cysts. Discharge Plan Discharge Disposition Patient Disposition: ED Admit(ED Internal Use Only) Discharge Condition Condition: Stable Discharge Order Discharge Orders: ED Use Only Admit Order (Routine); Ordered 01/09/19 Ordered By: Samreen Vega Discharge Details Diagnosis: Lower gastrointestinal hemorrhage, Diverticulosis Physicians Team ED Provider: Samreen Vega Primary Care Provider: [facility] Attending Provider: Marilu David Discharge Interventions Interventions: Vital Signs Last Done: 01/09/19 18:19 Status ED Status: Admitted Observation Patient
[2019-01-09] MEDS ORDERED: Acetaminophen 325 MG Tablet PO PRN (19:34)
[2019-01-09] MEDS ORDERED: Bisacodyl 10 MG Supp RECTAL PRN (19:34)
--- NOTE | 2019-01-09 19:36 | P.HPIM ---
History of Present Illness Primary Care Physician: [facility] History of Present Illness: This is a 73-year-old male with a PMH of HTN who presented to ER with complaints of BRBPR starting today. States he was feeling well, then developed acute onset abdominal cramping in LLQ followed by BRBPR and diaphoresis w/ nausea. Notes 4 episodes of bloody stool so far today. No h /o similar symptoms. On ASA at home. On arrival, BP 106/54, HR 71, O2 sat 96% on RA, Afebrile. Hemoglobin 12.9, previously 12.9 on 10/27/2017. INR 1.0. Chemistry essentially unremarkable except for GFR 60. UA negative. CT Abdomen/ Pelvis fatty liver, diverticulosis and renal cysts. Hemoccult +. Diagnosis (1) Lower GI bleed: (2) Anemia: (3) HTN (hypertension): Review of Systems PAST FAMILY HISTORY: Reviewed. No h/o DM or CAD Review of Systems: all other systems reviewed are negative [facility] Medical History Medical History Hypertension (Acute) Social History Social History Substance History: No History of Abuse Smoking Status: Never smoker How Often Do You Have a Drink Containing Alcohol: Never Recent Travel in [facility] within the Last 8 Weeks: No Recent Out of Country Travel within the Last 8 Weeks: No Immunization History Tetanus Immunization: <5 Years Medications and Allergies Allergies Allergy/AdvReac Type Severity Reaction Status Date / Time Sulfa (Sulfonamide Allergy Severe RASH Verified 01/09/19 14:13 Antibiotics) Home Medications Medication Instructions Recorded Confirmed Type amlodipine 2.5 mg PO DAILY 01/09/19 01/09/19 History aspirin [Aspir-81] 81 mg PO DAILY 01/09/19 01/09/19 History Active Medications: Active Medications Acetaminophen (Tylenol) 650 mg PO Q4H PRN PRN Reason: Temp > 100.4 Bisacodyl (Dulcolax Supp) 10 mg RECTAL DAILY PRN PRN Reason: SEVERE CONSITIPATION Non-Formulary Medication (Amlodipine [Amlodipine]) 2.5 mg PO DAILY XIAO Sodium Chloride (Ns Flush) 2 ml IV.FLUSH PRN PRN PRN Reason: FLUSH AFTER USING IV ACCESS Physical Exam Vital signs: Vital Signs 01/09/19 14:11 01/09/19 15:36 01/09/19 18:19 Temperature 97.5 F L Pulse Rate 71 80 66 Respiratory Rate 20 22 18 Blood Pressure 106/54 L 115/60 128/75 Pulse Oximetry 96 99 98 Intake & Output 01/09/19 01/09/19 01/10/19 06:59 18:59 06:59 Intake Total 1000 / 1000 Balance 1000 / 1000 Weight 110.677 kg Intake: IV 1000 / 1000 NS Inj 1,000 ML @ Wide Open IV. 1000 / 1000 SIG BOLUS ONE Rx#:[id number] Narrative: PE: GENERAL: Very pleasant middle-aged white male in no acute distress. If at bedside. SKIN: Focused skin assessment warm and dry. HEENT: PERRLA, EOMI. No scleral icterus or conjunctival pallor. No lid lag or facial droop. CARDIOVASCULAR: Regular rate and rhythm. No obvious murmurs to auscultation. No chest tenderness to palpation. RESPIRATORY: No obvious rhonchi or wheezing. Clear to auscultation. Breath sounds equal bilaterally. GASTROINTESTINAL: Abdomen soft, LLQ tenderness to palpation, nondistended. BS normal. MUSCULOSKELETAL: Extremities without clubbing, cyanosis, or edema. No obvious deformities. NEUROLOGICAL: Awake, alert and oriented x4. No focal neurologic deficits. Moving both upper and lower extremities spontaneously. PSYCHIATRIC: Appropriate mood and affect. Insight and judgment normal. Results Labs CBC & Chem 7: 01/09/19 15:50 01/09/19 15:50 Imaging Impressions Abdomen/Pelvis CT 01/09/19 15:41 CONCLUSION: Fatty liver, diverticulosis, renal cysts. Caprini VTE Risk Assessment Caprini VTE Risk Assessment: No/Low Risk (score <= 1) VTE Pharmacological Exception Reason: Active bleeding Caprini Risk Assessment Model: Point Value = 1 Point Value = 2 Point Value = 3 Point Value = 5 Age 41-60 Minor surgery BMI > 25 kg/m2 Swollen legs Varicose veins or History of unexplained or recurrent spontaneous Oral contraceptives or hormone replacement Sepsis (< 1 month) Serious lung disease, including pneumonia (< 1 month) Abnormal pulmonary function Acute myocardial infarction Congestive heart failure (< 1 month) History of inflammatory bowel disease Medical patient at bed rest Age 61-74 Arthroscopic surgery Major open surgery (> 45 min) Laparoscopic surgery (> 45 min) Malignancy Confined to bed (> 72 hours) Immobilizing plaster cast Central venous access Age >= 75 History of VTE Family history of VTE Factor V Leiden Prothrombin [id number] Lupus anticoagulant Anticardiolipin antibodies Elevated serum homocysteine Heparin-induced thrombocytopenia Other congenital or acquired thrombophilia Stroke (< 1 month) Elective arthroplasty Hip, pelvis, or leg fracture Acute spinal cord injury (< 1 month) Prophylaxis Regimen: Total Risk Factor Score Risk Level Prophylaxis Regimen 0-1 Low Early ambulation 2 Moderate Order ONE of the following: *Sequential Compression Device (SCD) *Heparin 5000 units SQ BID 3-4 Higher Order ONE of the following medications: *Heparin 5000 units SQ TID *Enoxaparin/Lovenox 40 mg SQ daily (WT < 150 kg, CrCl > 30 mL/min) *Enoxaparin/Lovenox 30 mg SQ daily (WT < 150 kg, CrCl > 10-29 mL/min) *Enoxaparin/Lovenox 30 mg SQ BID (WT < 150 kg, CrCl > 30 mL/min) AND/OR *Sequential Compression Device (SCD) 5 or more Highest Order ONE of the following medications: *Heparin 5000 units SQ TID (Preferred with Epidurals) *Enoxaparin/Lovenox 40 mg SQ daily (WT < 150 kg, CrCl > 30 mL/min) *Enoxaparin/Lovenox 30 mg SQ daily (WT < 150 kg, CrCl > 10-29 mL/min) *Enoxaparin/Lovenox 30 mg SQ BID (WT < 150 kg, CrCl > 30 mL/min) AND *Sequential Compression Device (SCD) Assessment and Plan (1) Lower GI bleed: Code(s): K92.2 - Gastrointestinal hemorrhage, unspecified Status: Acute (2) Anemia: Code(s): D64.9 - Anemia, unspecified Status: Acute (3) HTN (hypertension): Code(s): I10 - Essential (primary) hypertension Status: Acute Plan A/P: 1. Lower GI Bleed: acute onset BRBPR x4 episodes today, no h/o similar symptoms, Hemoccult +, CT Abd/Pelvis negative for acute findings. Hgb 12.9, stable in comparison to previous. Hold ASA, Consult GI for further eval/ intervention, NPO after midnight, analgesics/antiemetics as needed. 2. Anemia: Hgb 12.9, stable in comparison to labs from 2017, will repeat Hgb/ Hct tonight and again in am in light of multiple episodes of BRBPR. Transfuse as needed. 3. HTN: h/o HTN on Norvasc, monitor BP closely in light of GI Bleed. 4. DVT Prophylaxis: Pharmacologic contraindication due to above 5. Social work for d/c planning as needed. 6. Case discussed w/ ER physician at length, labs/records/imaging reviewed by me.
[2019-01-09] MEDS: Sod Chloride 0.9% Inj 1,000 ML IV.CONT SCH (20:02)
[2019-01-09] MEDS: Senna/Docusate Sodium 8.6/50 MG Tablet PO SCH (21:56)
[2019-01-10 01:06] LABS: Hematocrit 31.6 % (39.0-51.0); Hemoglobin 11.3 gm/dL (13.0-17.0)
[2019-01-10 06:59] LABS: Baso % (Auto) 0.5 % (0.0-2.0); Eos # (Auto) 0.3 th/mm3 (0.0-0.4); Hematocrit 32.8 % (39.0-51.0); Hemoglobin 11.3 gm/dL (13.0-17.0); Lymph # (Auto) 1.2 th/mm3 (1.0-4.8); Mean Corpuscular HGB Conc 34.4 % (32.0-36.0); Mean Corpuscular Hemoglobin 30.8 pg (27.0-34.0); Mean Corpuscular Volume 89.7 fL (80.0-100.0); Mean Platelet Volume 7.6 fL (7.0-11.0); Mono # (Auto) 0.8 th/mm3 (0.0-0.9); Mono % (Auto) 11.8 % (0.0-8.0); Neut # (Auto) 4.2 th/mm3 (1.8-7.7); Neut % (Auto) 64.7 % (16.0-70.0); Platelet Count 157 th/mm3 (150-450); Red Blood Count 3.66 mil/mm3 (4.50-5.90); Red Cell Distribution Width 13.3 % (11.6-17.2); White Blood Count 6.4 th/mm3 (4.0-11.0)
[2019-01-10] MEDS: Sod Chloride 0.9% Inj 1,000 ML IV.CONT SCH (07:22)
[2019-01-10 07:24] LABS: Alanine Aminotransferase 23 U/L (12-78); Albumin 2.9 g/dL (3.4-5.0); Alkaline Phosphatase 66 U/L (45-117); Anion Gap 8 meq/L (5-15); Aspartate Aminotransferase 26 U/L (15-37); Blood Urea Nitrogen 19 mg/dL (7-18); Carbon Dioxide 24.1 meq/L (21.0-32.0); Chloride 111 meq/L (98-107); Glomerular Filtration Rate 75 mL/min (>89); Glucose,Random 84 mg/dL (74-106); Potassium 4.1 meq/L (3.5-5.1); Sodium 143 meq/L (136-145)
--- NOTE | 2019-01-10 08:04 | P.PNIM ---
Subjective Interval history: Follow-up for GI bleed with BRBPR. Patient reports feeling much better today. He states since his arrival he has had 2 or 3 episodes of diarrhea stool mixed with bright red blood, however improved. Reports continued lower abdominal cramping, worse at the left lower quadrant. He denies any nausea or vomiting. He states he tolerated a sandwich last night for dinner. Patient states prior to his rectal bleeding, he was straining to have a bowel movement over the past few days. He reports a history of a colonoscopy in [place], last done 5 years ago, reportedly unremarkable. He denies ever being told he has any hemorrhoids or polyps. Physical Exam Vital signs: Vital Signs 01/09/19 14:11 01/09/19 15:36 01/09/19 18:19 Temperature 97.5 F L Pulse Rate 71 80 66 Respiratory Rate 20 22 18 Blood Pressure 106/54 L 115/60 128/75 Pulse Oximetry 96 99 98 01/09/19 20:02 01/09/19 23:55 01/10/19 03:53 Temperature 98.3 F 98.1 F Pulse Rate 69 73 65 Respiratory Rate 24 18 20 Blood Pressure 151/55 H 122/61 124/62 Pulse Oximetry 98 94 L 95 Intake & Output 01/09/19 01/10/19 01/10/19 18:59 06:59 18:59 Intake Total 1000 / 1000 400 / 400 Balance 1000 / 1000 400 / 400 Weight 110.677 kg 110.677 kg Intake: IV 1000 / 1000 400 / 400 NS Inj 1,000 ML @ 100 mls/hr IV 400 / 400 .CONT .Q10H XIAO Rx#:[id number] NS Inj 1,000 ML @ Wide Open IV. 1000 / 1000 SIG BOLUS ONE Rx#:[id number] Other: Weight On Admission 110.677 kg Narrative: GENERAL: Well-nourished, well-developed pleasant elderly male patient in [facility]. SKIN: Warm and dry. No rash. HEENT: Pupils equal and round. Mucous membranes pink and moist. CARDIOVASCULAR: Regular rate and rhythm. No murmur appreciated. RESPIRATORY: No accessory muscle use. Clear to auscultation. Breath sounds equal bilaterally. GASTROINTESTINAL: Abdomen soft, nondistended, LLQ TTP. Normoactive bowel sounds x4. MUSCULOSKELETAL: No obvious deformities. Extremities without clubbing, cyanosis , or edema. NEUROLOGICAL: Awake and alert. No obvious cranial nerve deficits. Normal speech. PSYCHIATRIC: Appropriate mood and affect; insight and judgment normal. Results Labs CBC & Chem 7: 01/10/19 06:17 01/10/19 06:17 Imaging Imaging: Impressions Abdomen/Pelvis CT 01/09/19 15:41 CONCLUSION: Fatty liver, diverticulosis, renal cysts. Assessment and Plan (1) Lower GI bleed: Code(s): K92.2 - Gastrointestinal hemorrhage, unspecified Status: Acute (2) Anemia: Code(s): D64.9 - Anemia, unspecified Status: Acute (3) HTN (hypertension): Code(s): I10 - Essential (primary) hypertension Status: Acute Plan 73-year-old male with a PMH of HTN who presented to ER with complaints of BRBPR x1day. Lower GI Bleed: acute onset BRBPR x4 episodes today, no h/o similar symptoms, Hemoccult + in the ED -CT Abd/Pelvis negative for acute findings, shows diverticulosis but no diverticulitis -Hgb 12.9, stable in comparison to previous. -Hold patient's aspirin -Consult GI for further eval/intervention -Keep NPO for now, analgesics/antiemetics as needed. Anemia: Hgb 12.9, stable in comparison to labs from 2017 -Trend H&H, Hgb 12.9 --> 11.3 --> 11.3 -Transfuse as needed. HTN: h/o HTN on Norvasc -Continue patient's Norvasc 2.5mg daily -monitor BP closely in light of GI Bleed. DVT Prophylaxis: teds/SCDs; Pharmacologic contraindication due to bleeding as above Progress Note: Quality VTE Deep Vein Thrombosis/Pulmonary Embolism Present on Admission: No
[2019-01-10 08:23] VITALS: O2SAT 96
[2019-01-10] MEDS: Senna/Docusate Sodium 8.6/50 MG Tablet PO SCH (08:37)
[2019-01-10] MEDS ORDERED: amLODIPine 5 MG Tablet PO SCH (09:00)
--- NOTE | 2019-01-10 09:38 | P.CONGI ---
History of Present Illness Consult date: 01/10/19 Requesting physician: Marilu David Chief complaint: GI Bleed History of Present Illness: This is a 73-year-old male with a past medical history of hypertension and diverticulitis who presented to the ER after several episodes of bright red blood per rectum yesterday. He states he was feeling well then experienced left lower abdominal crampy pain and passed several stools mixed with bright red blood. He developed nausea and diaphoresis but no vomiting. Since arrival at the hospital he has had one additional bloody stool but no further episodes since yesterday. No history of similar symptoms. No history of CAD or CVA. Denies syncope or near syncopal episodes. No history of hemorrhoids. He is on aspirin. He had diverticulitis in 1995. Last colonoscopy 4 years ago was normal. Vitals on admission were stable. Hemoglobin was 12.9 yesterday and 11.[address] was done and significant for diverticulosis and a moderate amount of stool in the colon mostly on the left side. Patient states he typically has regular bowel movements and denies any significant history of constipation. Denies diarrhea. No history of rectal bleeding prior to this. Denies melena. No family history of colon cancer. <Rajwinder Murrieta - Last Filed: 01/10/19 09:43> PMFSH - History History Provided By: Patient - Medical History Medical History: Medical History (Last Reviewed 01/09/19 @ 19:50 by Samreen Vega MD) Hypertension - Tobacco History Second Hand Smoke Exposure: No Tobacco Use In Past 30 Days: No Smoking Status: Former smoker Tobacco Type: Pipe, Cigars - Alcohol History How Often Do You Have a Drink Containing Alcohol: Monthly or less - Substance Use History Substance History: No History of Abuse - Travel History Recent Travel in the [place] Within the Last 8 Weeks: No Recent Travel Out of the Country Within the Last 8 Weeks: No - Immunization History Tetanus Immunization: <5 Years <Rajwinder Murrieta - Last Filed: 01/10/19 09:43> - Medical History Medical History: Medical History (Last Reviewed 01/09/19 @ 19:50 by Samreen Vega MD) Hypertension <Cristian Brantley - Last Filed: 01/10/19 16:07> Medications and Allergies Active Medications: Active Medications Acetaminophen (Tylenol) 650 mg PO Q4H PRN PRN Reason: Temp > 100.4 Al Hydroxide/Mg Hydroxide (Milk Of Magnesia Liq) 30 ml PO Q12H PRN PRN Reason: Mild Constipation Amlodipine Besylate (Norvasc) 2.5 mg PO DAILY [facility] Last Admin: 01/10/19 08:37 Dose: 2.5 mg Bisacodyl (Dulcolax Supp) 10 mg RECTAL DAILY PRN PRN Reason: SEVERE CONSITIPATION Sodium Chloride (Ns Inj) 1,000 mls @ 100 mls/hr IV.CONT .Q10H [facility] Last Infusion: 01/10/19 07:50 Dose: 100 mls/hr Lactulose (Lactulose Liq) 30 ml PO DAILY PRN PRN Reason: SEVERE CONSITIPATION Miscellaneous (Pill Splitter) 1 each OTHER UNSCH PRN PRN Reason: SEE LABEL COMMENTS Ondansetron HCl (Zofran Inj) 4 mg IV.PUSH Q6H PRN PRN Reason: NAUSEA OR VOMITING Senna/Docusate Sodium (Bernadette-Colace) 1 tab PO BID [facility] Last Admin: 01/10/19 08:37 Dose: Not Given Sennosides (Senokot) 17.2 mg PO Q12H PRN PRN Reason: Moderate Constipation Sodium Chloride (Ns Flush) 2 ml IV.FLUSH PRN PRN PRN Reason: FLUSH AFTER USING IV ACCESS Sodium Chloride (Ns Flush) 2 ml IV.FLUSH BID [facility] Last Admin: 01/10/19 08:37 Dose: Not Given Sodium Chloride (Ns Flush) 2 ml IV.FLUSH PRN PRN PRN Reason: FLUSH AFTER USING IV ACCESS <Rajwinder Murrieta C - Last Filed: 01/10/19 09:43> <Cristian Brantley E - Last Filed: 01/10/19 16:07> Allergies Allergy/AdvReac Type Severity Reaction Status Date / Time Sulfa (Sulfonamide Allergy Severe RASH Verified 01/09/19 14:13 Antibiotics) Home Medications Medication Instructions Recorded Confirmed Type amlodipine 2.5 mg PO DAILY 01/09/19 01/09/19 History Exam Vital signs: Vital Signs 01/09/19 14:11 01/09/19 15:36 01/09/19 18:19 Temperature 97.5 F L Pulse Rate 71 80 66 Respiratory Rate 20 22 18 Blood Pressure 106/54 L 115/60 128/75 Pulse Oximetry 96 99 98 01/09/19 20:02 01/09/19 23:55 01/10/19 03:53 Temperature 98.3 F 98.1 F Pulse Rate 69 73 65 Respiratory Rate 24 18 20 Blood Pressure 151/55 H 122/61 124/62 Pulse Oximetry 98 94 L 95 01/10/19 08:00 Temperature 97.7 F Pulse Rate 67 Respiratory Rate 18 Blood Pressure 134/78 Pulse Oximetry 96 Intake & Output 01/09/19 01/10/19 01/10/19 18:59 06:59 18:59 Intake Total 1000 / 1000 400 / 400 Balance 1000 / 1000 400 / 400 Weight 110.677 kg 110.677 kg Intake: IV 1000 / 1000 400 / 400 NS Inj 1,000 ML @ 100 mls/hr IV 400 / 400 .CONT .Q10H [facility] Rx#:[id number] NS Inj 1,000 ML @ Wide Open IV. 1000 / 1000 SIG BOLUS ONE Rx#:[id number] Other: Weight On Admission 110.677 kg <Rajwinder Murrieta - Last Filed: 01/10/19 09:43> Vital signs: Vital Signs 01/09/19 18:19 01/09/19 20:02 01/09/19 23:55 Temperature 98.3 F Pulse Rate 66 69 73 Respiratory Rate 18 24 18 Blood Pressure 128/75 151/55 H 122/61 Pulse Oximetry 98 98 94 L 01/10/19 03:53 01/10/19 08:00 01/10/19 12:00 Temperature 98.1 F 97.7 F 98.2 F Pulse Rate 65 67 73 Respiratory Rate 20 18 16 Blood Pressure 124/62 134/78 116/63 Pulse Oximetry 95 96 96 Intake & Output 01/09/19 01/10/19 01/10/19 18:59 06:59 18:59 Intake Total 1000 / 1000 1000 / 1000 Balance 1000 / 1000 1000 / 1000 Weight 110.677 kg 110.677 kg Intake: IV 1000 / 1000 1000 / 1000 NS Inj 1,000 ML @ 100 mls/hr IV 1000 / 1000 .CONT .Q10H [facility] Rx#:[id number] NS Inj 1,000 ML @ Wide Open IV. 1000 / 1000 SIG BOLUS ONE Rx#:[id number] Other: Date of Last Bowel Movement 01/09/19 Weight On Admission 110.677 kg <Cristian Brantley - Last Filed: 01/10/19 16:07> Results - Labs CBC & Chem 7: 01/10/19 06:17 01/10/19 06:17 Labs: Laboratory Results - last 24 hr 01/09/19 01/09/19 01/09/19 15:50 15:50 15:50 WBC 9.6 RBC 4.22 L Hgb 12.9 L Hct 37.7 L MCV 89.4 MCH 30.6 MCHC 34.3 RDW 13.4 Plt Count 178 MPV 7.9 Neut % (Auto) 82.3 H Lymph % (Auto) 8.8 L [place] % (Auto) 6.4 Eos % (Auto) 2.1 Baso % (Auto) 0.4 Neut # (Auto) 7.9 H Lymph # (Auto) 0.8 L [place] # (Auto) 0.6 Eos # (Auto) 0.2 Baso # (Auto) 0.0 WBC Differential . Differential Comment Auto diff final PT 10.0 INR 1.0 APTT 23.8 Sodium 140 Potassium 4.8 Chloride 108 H Carbon Dioxide 24.2 Anion Gap 8 BUN 26 H Creatinine 1.19 Estimated GFR 60 L Random Glucose 98 Calcium 7.9 L Magnesium 2.3 Total Bilirubin 0.7 AST 36 ALT 24 Alkaline Phosphatase 74 Total Protein 7.0 Albumin 3.5 Lipase 111 Urine Color Urine Clarity Urine pH Ur Specific [place] Urine Protein Urine Glucose (UA) Urine Ketones Urine Occult Blood Urine Nitrate Urine Bilirubin Urine Urobilinogen Ur Leukocyte Esterase Urine WBC Urine Mucus Micro UA Comment Ur Microscopic Review Urine Culture Comments 01/09/19 01/10/19 01/10/19 16:42 00:15 06:17 WBC 6.4 RBC 3.66 L Hgb 11.3 L 11.3 L Hct 31.6 L 32.8 L MCV 89.7 MCH 30.8 MCHC 34.4 RDW 13.3 Plt Count 157 MPV 7.6 Neut % (Auto) 64.7 Lymph % (Auto) 18.0 [place] % (Auto) 11.8 H Eos % (Auto) 5.0 H Baso % (Auto) 0.5 Neut # (Auto) 4.2 Lymph # (Auto) 1.2 [place] # (Auto) 0.8 Eos # (Auto) 0.3 Baso # (Auto) 0.0 WBC Differential . Differential Comment Auto diff final PT INR APTT Sodium Potassium Chloride Carbon Dioxide Anion Gap BUN Creatinine Estimated GFR Random Glucose Calcium Magnesium Total Bilirubin AST ALT Alkaline Phosphatase Total Protein Albumin Lipase Urine Color Yellow Urine Clarity Clear Urine pH 5.0 Ur Specific [place] 1.025 Urine Protein Negative Urine Glucose (UA) Negative Urine Ketones Negative Urine Occult Blood Negative Urine Nitrate Negative Urine Bilirubin Negative Urine Urobilinogen Less than 2 Ur Leukocyte Esterase Trace H Urine WBC 1 Urine Mucus Few H Micro UA Comment Culture not ind Ur Microscopic Review Not Reportable Urine Culture Comments Culture not ind 01/10/19 06:17 WBC RBC Hgb Hct MCV MCH MCHC RDW Plt Count MPV Neut % (Auto) Lymph % (Auto) [place] % (Auto) Eos % (Auto) Baso % (Auto) Neut # (Auto) Lymph # (Auto) [place] # (Auto) Eos # (Auto) Baso # (Auto) WBC Differential Differential Comment PT INR APTT Sodium 143 Potassium 4.1 Chloride 111 H Carbon Dioxide 24.1 Anion Gap 8 BUN 19 H Creatinine 0.98 Estimated GFR 75 L Random Glucose 84 Calcium 8.0 L Magnesium Total Bilirubin 0.6 AST 26 ALT 23 Alkaline Phosphatase 66 Total Protein 6.0 L D Albumin 2.9 L D Lipase Urine Color Urine Clarity Urine pH Ur Specific [place] Urine Protein Urine Glucose (UA) Urine Ketones Urine Occult Blood Urine Nitrate Urine Bilirubin Urine Urobilinogen Ur Leukocyte Esterase Urine WBC Urine Mucus Micro UA Comment Ur Microscopic Review Urine Culture Comments - Imaging Impressions Abdomen/Pelvis CT 01/09/19 15:41 CONCLUSION: Fatty liver, diverticulosis, renal cysts. <Rajwinder Murrieta - Last Filed: 01/10/19 09:43> - Labs CBC & Chem 7: 01/10/19 06:17 01/10/19 06:17 Labs: Laboratory Results - last 24 hr 01/09/19 01/09/19 01/09/19 15:50 15:50 15:50 WBC 9.6 RBC 4.22 L Hgb 12.9 L Hct 37.7 L MCV 89.4 MCH 30.6 MCHC 34.3 RDW 13.4 Plt Count 178 MPV 7.9 Neut % (Auto) 82.3 H Lymph % (Auto) 8.8 L [place] % (Auto) 6.4 Eos % (Auto) 2.1 Baso % (Auto) 0.4 Neut # (Auto) 7.9 H Lymph # (Auto) 0.8 L [place] # (Auto) 0.6 Eos # (Auto) 0.2 Baso # (Auto) 0.0 WBC Differential . Differential Comment Auto diff final PT 10.0 INR 1.0 APTT 23.8 Sodium 140 Potassium 4.8 Chloride 108 H Carbon Dioxide 24.2 Anion Gap 8 BUN 26 H Creatinine 1.19 Estimated GFR 60 L Random Glucose 98 Calcium 7.9 L Magnesium 2.3 Total Bilirubin 0.7 AST 36 ALT 24 Alkaline Phosphatase 74 Total Protein 7.0 Albumin 3.5 Lipase 111 Urine Color Urine Clarity Urine pH Ur Specific [place] Urine Protein Urine Glucose (UA) Urine Ketones Urine Occult Blood Urine Nitrate Urine Bilirubin Urine Urobilinogen Ur Leukocyte Esterase Urine WBC Urine Mucus Micro UA Comment Ur Microscopic Review Urine Culture Comments 01/09/19 01/10/19 01/10/19 16:42 00:15 06:17 WBC 6.4 RBC 3.66 L Hgb 11.3 L 11.3 L Hct 31.6 L 32.8 L MCV 89.7 MCH 30.8 MCHC 34.4 RDW 13.3 Plt Count 157 MPV 7.6 Neut % (Auto) 64.7 Lymph % (Auto) 18.0 [place] % (Auto) 11.8 H Eos % (Auto) 5.0 H Baso % (Auto) 0.5 Neut # (Auto) 4.2 Lymph # (Auto) 1.2 [place] # (Auto) 0.8 Eos # (Auto) 0.3 Baso # (Auto) 0.0 WBC Differential . Differential Comment Auto diff final PT INR APTT Sodium Potassium Chloride Carbon Dioxide Anion Gap BUN Creatinine Estimated GFR Random Glucose Calcium Magnesium Total Bilirubin AST ALT Alkaline Phosphatase Total Protein Albumin Lipase Urine Color Yellow Urine Clarity Clear Urine pH 5.0 Ur Specific [place] 1.025 Urine Protein Negative Urine Glucose (UA) Negative Urine Ketones Negative Urine Occult Blood Negative Urine Nitrate Negative Urine Bilirubin Negative Urine Urobilinogen Less than 2 Ur Leukocyte Esterase Trace H Urine WBC 1 Urine Mucus Few H Micro UA Comment Culture not ind Ur Microscopic Review Not Reportable Urine Culture Comments Culture not ind 01/10/19 06:17 WBC RBC Hgb Hct MCV MCH MCHC RDW Plt Count MPV Neut % (Auto) Lymph % (Auto) [place] % (Auto) Eos % (Auto) Baso % (Auto) Neut # (Auto) Lymph # (Auto) [place] # (Auto) Eos # (Auto) Baso # (Auto) WBC Differential Differential Comment PT INR APTT Sodium 143 Potassium 4.1 Chloride 111 H Carbon Dioxide 24.1 Anion Gap 8 BUN 19 H Creatinine 0.98 Estimated GFR 75 L Random Glucose 84 Calcium 8.0 L Magnesium Total Bilirubin 0.6 AST 26 ALT 23 Alkaline Phosphatase 66 Total Protein 6.0 L D Albumin 2.9 L D Lipase Urine Color Urine Clarity Urine pH Ur Specific [place] Urine Protein Urine Glucose (UA) Urine Ketones Urine Occult Blood Urine Nitrate Urine Bilirubin Urine Urobilinogen Ur Leukocyte Esterase Urine WBC Urine Mucus Micro UA Comment Ur Microscopic Review Urine Culture Comments - Imaging Impressions Abdomen/Pelvis CT 01/09/19 15:41 CONCLUSION: Fatty liver, diverticulosis, renal cysts. <Cristian Brantley E - Last Filed: 01/10/19 16:07> Assessment and Plan (1) Anemia Status: Acute Code(s): D64.9 - Anemia, unspecified (2) Lower GI bleed Status: Acute Code(s): K92.2 - Gastrointestinal hemorrhage, unspecified (3) Diverticulosis Status: Acute Code(s): K57.90 - Diverticulosis of intestine, part unspecified , without perforation or abscess without bleeding - Plan 1. Lower GI bleeding. 4-5 episodes of bloody stool, now resolved. Symptoms associated with crampy pain and nausea, now resolved. CT significant only for diverticulosis and moderate amount of stool in the colon. 2. Anemia. Hemoglobin 12.9 on arrival consistent with his baseline. Hemoglobin 11.3 on this morning's labs. He is on aspirin but no other anticoagulation. 3. Diverticulosis, remote history of diverticulitis. 4. Last colonoscopy 4 years ago unremarkable per patient's recollection. Recommend colonoscopy for further evaluation. Differential diagnosis includes ischemic colitis, diverticular bleeding, acute colitis, hemorrhoidal bleeding versus less likely neoplasm. Patient is stable, labs are stable. Patient could be prepped today for procedure tomorrow but patient states he would rather be discharged [facility] and will follow up Saturday with the [facility]. If no further bleeding and patient tolerates diet, vitals remain stable ok to d/c and follow up as outpatient. Patient was seen and examined by myself and discussed with Dr. Brantley and this note was written on his behalf. Please call Rajwinder [phone] for any further questions or concerns. - Attending Attestation Dr. Brantley <Rajwinder Murrieta - Last Filed: 01/10/19 09:43> (1) Anemia Status: Acute Code(s): D64.9 - Anemia, unspecified (2) Lower GI bleed Status: Acute Code(s): K92.2 - Gastrointestinal hemorrhage, unspecified (3) Diverticulosis Status: Acute Code(s): K57.90 - Diverticulosis of intestine, part unspecified , without perforation or abscess without bleeding - Attending Attestation Patient seen and examined Agree with above Continue with current supportive care Monitor labs Currently no active GI bleed and the patient is requesting to go home and pursue this on an outpatient basis Patient educated on symptoms of worsening anemia and that if there is any active GI bleed he is to return otherwise he will [facility] Hold any anticoagulation or antiplatelets at this point until further notice <Cristian Brantley E - Last Filed: 01/10/19 16:07> <Rajwinder Murrieta - Last Filed: 01/10/19 09:43> (3) Diverticulosis Qualifiers: Diverticulosis site: diverticulosis of large intestine Diverticulosis bleeding: diverticulosis with bleeding Qualified Code(s): K57.31 - Diverticulosis of large intestine without perforation or abscess with bleeding <Cristian Brantley E - Last Filed: 01/10/19 16:07> (3) Diverticulosis Qualifiers: Diverticulosis site: diverticulosis of large intestine Diverticulosis bleeding: diverticulosis with bleeding Qualified Code(s): K57.31 - Diverticulosis of large intestine without perforation or abscess with bleeding
[2019-01-10 12:39] VITALS: BP 116/63; PULSE 73; RESP 16; TEMP 98.2
== END 2019-01-10 15:28 | disposition home or self-care (01) ==
LOC: NEPD 13:58 → NEDA 13:58 → NEPHCDU 21:16
PROVIDERS: ADMIT Hospitalist; ATTEND Hospitalist
DX: Z79.899 Other long term (current) drug therapy; Z79.82 Long term (current) use of aspirin; N28.1 Cyst of kidney, acquired; I10 Essential (primary) hypertension; I70.0 Atherosclerosis of aorta; K76.0 Fatty (change of) liver, not elsewhere classified; D64.9 Anemia, unspecified; Z87.891 Personal history of nicotine dependence; K57.90 Diverticulosis of intestine, part unspecified, without perforation or abscess without bleeding; K92.1 Melena
CPT/HCPCS: 74177; 80053; 81001; 83690; 83735; 85014; 85018; 85025; 85610; 85730; 90760; 90761; 96360; 96361; 99285; G0378; J7030; Q9967

== ENCOUNTER 2019-01-12 10:02 | Inpatient (IN) ==
--- NOTE | 2019-01-12 12:38 | ED ---
HPI General Chief complaint: Abdominal Pain Stated complaint: [facility] Sent Time Seen by Provider: 01/12/19 12:18 History of Present Illness HPI narrative: This patient was discharged from this hospital 2 days ago. He was having some bright red rectal bleeding. They decided that [facility] would [facility] than stay as an inpatient because he was stable. Yesterday he had further bright red rectal bleeding. He had 2 episodes of bloody diarrhea. He is not having abdominal pain. No syncope. He is not having any so far today. He tried to get [facility] but they said they could not see him for months ago back to the ER. No vomiting. He used to take a baby aspirin but they have stopped that recently. No other blood thinners. No prior history of GI bleeding. Severity of symptoms at this time is mild. No alleviating factors. No exacerbating factors. Duration 1 week Related Data Home Medications Medication Instructions Recorded Confirmed amlodipine 2.5 mg PO DAILY 01/09/19 01/12/19 Allergies Allergy/AdvReac Type Severity Reaction Status Date / Time Sulfa (Sulfonamide Allergy Severe RASH Verified 01/12/19 11:38 Antibiotics) Review of Systems ROS: all other systems reviewed are negative [facility] Medical History Medical History Hypertension (Acute) Social History Social History Substance History: No History of Abuse Second Hand Smoke Exposure: No Smoking Status: Never smoker Tobacco Type: Pipe and Cigars How Often Do You Have a Drink Containing Alcohol: 2 to 4 times a month Recent Travel in [facility] within the Last 8 Weeks: No Recent Out of Country Travel within the Last 8 Weeks: No Immunization History Tetanus Immunization: <5 Years Exam Narrative Exam Narrative: Much gENERAL: Well-nourished, well-developed patient in no apparent distress. SKIN: Focused skin assessment reveals no rash and nodules. Skin is Warm and dry. HEAD: Atraumatic. Normocephalic. EYES: Pupils equal and round. No scleral icterus. No injection or drainage. ENT: No nasal bleeding or discharge. Mucous membranes pink and moist. NECK: Trachea midline. No JVD. CARDIOVASCULAR: Regular rate and rhythm. No murmur appreciated. RESPIRATORY: No accessory muscle use. Clear to auscultation. Breath sounds equal bilaterally. GASTROINTESTINAL: Abdomen soft, non-tender, nondistended. Hepatic and splenic margins not palpable. MUSCULOSKELETAL: No obvious deformities. No clubbing. No cyanosis. No edema. NEUROLOGICAL: Awake and alert. No obvious cranial nerve deficits. Motor grossly within normal limits. Normal speech. PSYCHIATRIC: Appropriate mood and affect; insight and judgment normal. Course Initial Documented Vital Signs Temperature 97.6 F 01/12/19 10:21 Pulse Rate 74 01/12/19 10:21 Respiratory Rate 17 01/12/19 10:21 Blood Pressure 130/58 L 01/12/19 10:21 Pulse Oximetry 96 01/12/19 10:21 Last Documented Vital Signs Temperature 97.6 F 01/12/19 10:21 Pulse Rate 66 01/12/19 14:09 Respiratory Rate 18 01/12/19 14:09 Blood Pressure 103/72 01/12/19 14:09 Pulse Oximetry 95 01/12/19 14:09 Medical Decision Making MDM Narrative Medical decision making narrative: 73-year-old male with recurrent bright red rectal bleeding. IV placed and labs have been sent. He is a soft benign nontender abdomen and normal vital signs. Hemoglobin continues to drop currently 9.8. I reviewed with the medical residents who will admit for lower GI bleed with anemia Medical Screen Exam Complete: Yes Emergency Medical Condition: Yes Medical Records Medical records reviewed: Yes I reviewed the patient's medical records. Reviewed his discharge summary from 2 days ago Lab Data Lab results reviewed: Yes I reviewed the patient's lab results. Lab results narrative: CBC is on shows anemia of 9.8 Result diagrams: 01/12/19 12:40 01/12/19 12:40 Lab Results 01/12/19 01/12/19 01/12/19 Range/Units 12:40 12:40 12:40 WBC 5.4 (4.0-11.0) th/mm3 RBC 3.11 L (4.50-5.90) mil/mm3 Hgb 9.8 L (13.0-17.0) gm/dL Hct 27.6 L (39.0-51.0) % MCV 88.8 (80.0-100.0) fL MCH 31.5 (27.0-34.0) pg MCHC 35.4 (32.0-36.0) % RDW 13.8 (11.6-17.2) % Plt Count 165 (150-450) th/mm3 MPV 7.3 (7.0-11.0) fL Neut % (Auto) 57.7 (16.0-70.0) % Lymph % (Auto) 23.7 (9.0-44.0) % [place] % (Auto) 11.3 H (0.0-8.0) % Eos % (Auto) 6.8 H (0.0-4.0) % Baso % (Auto) 0.5 (0.0-2.0) % Neut # (Auto) 3.1 (1.8-7.7) th/mm3 Lymph # (Auto) 1.3 (1.0-4.8) th/mm3 [place] # (Auto) 0.6 (0.0-0.9) th/mm3 Eos # (Auto) 0.4 (0.0-0.4) th/mm3 Baso # (Auto) 0.0 (0.0-0.2) th/mm3 WBC Differential . Differential Comment Auto diff final PT 9.8 (9.8-11.6) sec INR 1.0 Ratio APTT 24.6 (23.4-31.7) sec Sodium 143 (136-145) meq/L Potassium 4.6 (3.5-5.1) meq/L Chloride 111 H (98-107) meq/L Carbon Dioxide 28.2 (21.0-32.0) meq/L Anion Gap 4 L (5-15) meq/L BUN 27 H (7-18) mg/dL Creatinine 1.11 (0.60-1.30) mg/dL Estimated GFR 65 L (>89) mL/min Random Glucose 100 (74-106) mg/dL Calcium 8.4 L (8.5-10.1) mg/dL Magnesium 2.3 (1.5-2.5) mg/dL Total Bilirubin 0.5 (0.2-1.0) mg/dL AST 26 (15-37) U/L ALT 20 (12-78) U/L Alkaline Phosphatase 67 (45-117) U/L Total Protein 6.5 (6.4-8.2) g/dL Albumin 3.3 L (3.4-5.0) g/dL Discharge Plan Discharge Disposition Patient Disposition: ED Admit(ED Internal Use Only) Discharge Details Diagnosis: Lower gastrointestinal hemorrhage, Anemia Physicians Team ED Provider: Al Quesada Primary Care Provider: [facility] /Orders / Referrals /Forms Prescriptions: No Action amlodipine 2.5 mg Tablet 2.5 mg PO DAILY RF: 0 Discharge Interventions Interventions: Vital Signs Last Done: 01/12/19 14:09 Status ED Status: With Doctor
[2019-01-12 12:53] LABS: Baso % (Auto) 0.5 % (0.0-2.0); Eos # (Auto) 0.4 th/mm3 (0.0-0.4); Eos % (Auto) 6.8 % (0.0-4.0); Hematocrit 27.6 % (39.0-51.0); Hemoglobin 9.8 gm/dL (13.0-17.0); Lymph # (Auto) 1.3 th/mm3 (1.0-4.8); Lymph % (Auto) 23.7 % (9.0-44.0); Mean Corpuscular HGB Conc 35.4 % (32.0-36.0); Mean Corpuscular Hemoglobin 31.5 pg (27.0-34.0); Mean Corpuscular Volume 88.8 fL (80.0-100.0); Mean Platelet Volume 7.3 fL (7.0-11.0); Mono # (Auto) 0.6 th/mm3 (0.0-0.9); Mono % (Auto) 11.3 % (0.0-8.0); Neut # (Auto) 3.1 th/mm3 (1.8-7.7); Neut % (Auto) 57.7 % (16.0-70.0); Platelet Count 165 th/mm3 (150-450); Red Blood Count 3.11 mil/mm3 (4.50-5.90); Red Cell Distribution Width 13.8 % (11.6-17.2); White Blood Count 5.4 th/mm3 (4.0-11.0)
[2019-01-12 13:03] LABS: Activated Partial Thrombo Time 24.6 sec (23.4-31.7); Prothrombin Time 9.8 sec (9.8-11.6)
[2019-01-12 13:16] LABS: Albumin 3.3 g/dL (3.4-5.0); Anion Gap 4 meq/L (5-15); Aspartate Aminotransferase 26 U/L (15-37); Blood Urea Nitrogen 27 mg/dL (7-18); Calcium 8.4 mg/dL (8.5-10.1); Carbon Dioxide 28.2 meq/L (21.0-32.0); Chloride 111 meq/L (98-107); Glomerular Filtration Rate 65 mL/min (>89); Glucose,Random 100 mg/dL (74-106); Magnesium 2.3 mg/dL (1.5-2.5); Potassium 4.6 meq/L (3.5-5.1); Sodium 143 meq/L (136-145)
[2019-01-12 13:24] LABS: Alanine Aminotransferase 20 U/L (12-78); Alkaline Phosphatase 67 U/L (45-117); Total Protein 6.5 g/dL (6.4-8.2)
--- NOTE | 2019-01-12 14:11 | P.HPFP ---
History of Present Illness Primary Care Physician: [facility] <MarkgeovannaEstevan K - 01/13/19 08:04> [facility] <Razia Wills - 01/12/19 14:11> Chief Complaint: BRBPR <Razia Wills - 01/12/19 14:11> History of Present Illness: 73-year-old male who is otherwise healthy presents the hospital for bright red blood per rectum that originally started days ago, remitted, and then restarted last night. Patient notes having 2 episodes of bloody diarrhea, noting that the blood and fecal matter was intermixed, and filled the toilet. Patient states when this occurs, he experiences sweating episodes and some mild lightheaded dizziness, in addition to moderate lower left quadrant pain. He states that on Saturday he had passed 7-8 bloody stools which originally prompted him to come to the ED. Patient denies fever, nausea, vomiting, dizziness, syncope, loss of consciousness, falls, or urinary problems. Denies chest pain, shortness of breath, or leg pain. Admits to mild intermittent swelling in his feet last night, which has now resolved. Patient states that he was seen in the ED on 01/09/19 for the same issue , but more frequent. At that point in time imaging showed diverticulosis without diverticulitis, but no other obvious source of bleeding. Patient was recommended to have a colonoscopy performed in the hospital, however patient stated that he would rather have it performed outpatient. Due to lack of active bleeding at the time, GI cleared him for discharge, with close outpatient follow-up. Patient instructed to return to the ED if he continued to experience bloody diarrhea, which is why he returned today. PMHX: History of PVCs. He is undergone cardiac testing for this arrhythmia, noting that he underwent testing nuclear stress test in the last year prior to hip replacement surgery. History of colonoscopy in 2004 2009, in 2014. He was found to have benign polyps 5 years ago, but denies any other abnormal findings. Meds: Takes amlodipine daily in the morning. Patient states he was started on this medication for "leg swelling". Surgical history: R hip replacement Social history Former pipe smoker, quit in 1981. EtOH: Drinks a couple of drinks a month. Denies illicit drug use PCP: At the [place], Dr. Aguilar [facility] 01/13/[facility] 01:10> - Diagnosis (1) BRBPR (bright red blood per rectum) (2) Lower GI bleed (3) Anemia (4) HTN (hypertension) (5) Diverticulosis (6) Nutrition, metabolism, and development symptoms (7) DVT prophylaxis <Estevan Rodriguez 01/13/19 08:04> (1) BRBPR (bright red blood per rectum) (2) Lower GI bleed (3) Anemia (4) HTN (hypertension) (5) Diverticulosis (6) Nutrition, metabolism, and development symptoms (7) DVT prophylaxis <[place] [id number] 01/13/19 01:11> Inpatient Certification: I certify that the inpatient services were ordered in accordance with Medicare regulations governing the order. This includes certification that hospital inpatient services are reasonable and necessary and in the case of services not specified as inpatient-only under 42 CFR 419.22(n), that they are appropriately provided as inpatient services in accordance to with the 2-midnight benchmark under 43 CFR 412.3(e) <Estevan Rodriguez 01/13/19 08:04> Review of Systems Constitutional: Reports fatigue (Mild), Denies chills, Denies fever(s), Denies weakness <[place] [id number] 01/12/19 20:17> Eyes: Denies change in vision, Denies double vision <[place] [id number] 20:17> Ears, Nose, Mouth, and Throat: Denies dizziness, Denies headache(s), Denies nasal congestion, Denies nasal discharge, Denies sinus pressure <[address] 01/12/19 20:17> Cardiovascular: Denies chest pain <[address] 01/12/19 20:17> Respiratory: Denies cough, Denies wheezing <[place] [id number] 01/12/19 20: 17> Gastrointestinal: Reports bright, red blood in stools, Reports loose stools, Denies black, tarry stools, Denies coffee ground vomit, Denies nausea, Denies vomiting <[place] [id number] 01/12/19 20:17> Genitourinary: Denies blood in urine, Denies painful urination <Razia Wills 01/12/19 20:17> Musculoskeletal: Denies numbness, Denies tingling <Razia Wills 20:17> PMFSH - History History Provided By: Patient <Razia Wills 01/12/19 14:11> - Medical History Medical History: Medical History (Last Reviewed 01/12/19 @ 14:10 by Razia Luna, DO, R1) Hypertension <MichaelEstevan Neal 01/13/19 08:04> Medical History (Last Reviewed 01/12/19 @ 14:10 by Razia Fisher R1, DO, R1) Hypertension <Razia Wills 01/12/19 14:11> - Surgical History Surgical History: Surgical History (Last Reviewed 01/12/19 @ 20:15 by Razia Fisher R1, DO, R1) History of right hip replacement <SwatiEstevan currie Val 01/13/19 08:04> Surgical History (Last Reviewed 01/12/19 @ 20:15 by Razia Haskins Phillip Jeremy, DO, R1) History of right hip replacement <Razia Wills 01/12/19 20:17> - Tobacco History Second Hand Smoke Exposure: No <Razia Wills 01/12/19 14:11> Smoking Status: Never smoker <Razia Wills 01/12/19 14:11> Tobacco Type: Pipe, Cigars <Razia Wills 01/12/19 14:11> - Alcohol History How Often Do You Have a Drink Containing Alcohol: 2 to 4 times a month <Razia Wills 01/12/19 14:11> - Substance Use History Substance History: No History of Abuse <Razia Wills 01/12/19 14:11> - Travel History Recent Travel in the [facility] Within the Last 8 Weeks: No <Razia Wills 14:11> Recent Travel Out of the Country Within the Last 8 Weeks: No <Razia Wills 01/12/19 14:11> - Immunization History Tetanus Immunization: <5 Years <Phillip LunaRazia Haskins - 01/12/19 14:11> Medications and Allergies Allergies Allergy/AdvReac Type Severity Reaction Status Date / Time Sulfa (Sulfonamide Allergy Severe RASH Verified 01/12/19 11:38 Antibiotics) <MichaelEstevan Neal - 01/13/19 08:04> Home Medications Medication Instructions Recorded Confirmed Type amlodipine 2.5 mg PO DAILY 01/09/19 01/12/19 History <Estevan Rodriguez - 01/13/19 08:04> Active Medications: Active Medications Acetaminophen (Tylenol) 650 mg PO Q4H PRN PRN Reason: Temp > 100.4 Sodium Chloride (Ns Inj) 1,000 mls @ 150 mls/hr IV.CONT .Q6H40M [facility] Last Admin: 01/13/19 04:55 Dose: 150 mls/hr Ondansetron HCl (Zofran Inj) 4 mg IV.PUSH Q6H PRN PRN Reason: NAUSEA OR VOMITING Sodium Chloride (Ns Flush) 2 ml IV.FLUSH BID [facility] Last Admin: 01/12/19 22:14 Dose: 2 ml Sodium Chloride (Ns Flush) 2 ml IV.FLUSH PRN PRN PRN Reason: FLUSH AFTER USING IV ACCESS <MarkEstevan austin - 01/13/19 08:04> Exam Vital signs: Vital Signs 01/12/19 10:21 01/12/19 11:22 01/12/19 14:09 Temperature 97.6 F Pulse Rate 74 66 66 Respiratory Rate 17 18 18 Blood Pressure 130/58 L 130/63 103/72 Pulse Oximetry 96 99 95 01/12/19 17:45 01/12/19 19:38 01/12/19 20:00 Temperature Pulse Rate 52 L 57 L Respiratory Rate 18 18 Blood Pressure 143/69 H 134/78 Pulse Oximetry 100 98 01/12/19 21:53 01/13/19 00:00 Temperature 98.0 F 97.4 F L Pulse Rate 69 64 Respiratory Rate 20 20 Blood Pressure 123/70 115/68 Pulse Oximetry 96 97 Intake & Output 01/12/19 01/13/19 01/13/19 18:59 06:59 18:59 Intake Total 1999 Balance 1999 Weight 110.677 kg 114.8 kg Intake: IV 1999 NS Inj 1,000 ML @ 150 mls/hr IV 1999 .CONT .Q6H40M [facility] Rx#:[id number] Other: # Voids 4 # Bowel Movements 4 <Estevan Rodriguez - 01/13/19 08:04> Vital Signs 01/12/19 10:21 01/12/19 11:22 Temperature 97.6 F Pulse Rate 74 66 Respiratory Rate 17 18 Blood Pressure 130/58 L 130/63 Pulse Oximetry 96 99 Intake & Output 01/11/19 01/12/19 01/12/19 18:59 06:59 18:59 Weight 110.677 kg <Razia Wills - 01/12/19 14:11> Narrative: GENERAL: 73-year-old, well nourished, well developed male laying comfortably down in bed on his phone. In no acute distress. SKIN: Warm and dry. Mild pallor of the skin. HEAD: Atraumatic. Normocephalic. EYES: EMOI. PERRLA. No scleral icterus. No injection or drainage. ENT: No nasal bleeding or discharge. Mucous membranes mildly pale and moist. Airway patent. CARDIOVASCULAR: Regular rate and rhythm. No murmur. RESPIRATORY: No accessory muscle use. Clear to auscultation with equal breath sounds. No crackles, wheeze, rales or rhonchi. GASTROINTESTINAL: Abdomen soft, mildly tender in left lower quadrant, nondistended. Mild guarding, no rebound. Hepatic and splenic margins not palpable. MUSCULOSKELETAL: Extremities without clubbing, cyanosis, or edema. No obvious deformities. No calf tenderness. NEUROLOGICAL: Awake and alert. No obvious cranial nerve deficits. Motor grossly within normal limits. Five out of 5 muscle strength in the arms and legs. Normal speech. PSYCHIATRIC: Appropriate mood and affect; insight and judgment normal. <Razia Wills - 01/13/19 01:10> Results - Labs Result diagrams: 01/13/19 05:21 01/13/19 05:21 <Estevan Rodriguez - 01/13/19 08:04> Abnormal lab results 01/12/19 01/12/19 01/13/19 Range/Units 12:40 12:40 05:21 RBC 3.11 L 3.08 L (4.50-5.90) mil/mm3 Hgb 9.8 L 9.5 L (13.0-17.0) gm/dL Hct 27.6 L 27.1 L (39.0-51.0) % [place] % (Auto) 11.3 H 10.8 H (0.0-8.0) % Eos % (Auto) 6.8 H 9.7 H (0.0-4.0) % Eos # (Auto) 0.5 H (0.0-0.4) th/mm3 Chloride 111 H (98-107) meq/L Anion Gap 4 L (5-15) meq/L BUN 27 H (7-18) mg/dL Estimated GFR 65 L (>89) mL/min Calcium 8.4 L (8.5-10.1) mg/dL Total Protein (6.4-8.2) g/dL Albumin 3.3 L (3.4-5.0) g/dL 01/13/19 Range/Units 05:21 RBC (4.50-5.90) mil/mm3 Hgb (13.0-17.0) gm/dL Hct (39.0-51.0) % Atlantic % (Auto) (0.0-8.0) % Eos % (Auto) (0.0-4.0) % Eos # (Auto) (0.0-0.4) th/mm3 Chloride 112 H (98-107) meq/L Anion Gap 4 L (5-15) meq/L BUN 19 H (7-18) mg/dL Estimated GFR 83 L (>89) mL/min Calcium 7.8 L (8.5-10.1) mg/dL Total Protein 6.3 L (6.4-8.2) g/dL Albumin 3.1 L (3.4-5.0) g/dL Short CBC 01/12/19 01/13/19 Range/Units 12:40 05:21 WBC 5.4 4.7 (4.0-11.0) th/mm3 Hgb 9.8 L 9.5 L (13.0-17.0) gm/dL Hct 27.6 L 27.1 L (39.0-51.0) % Plt Count 165 157 (150-450) th/mm3 BMP 01/12/19 01/13/19 12:40 05:21 Sodium 143 143 Potassium 4.6 4.1 Chloride 111 H 112 H Carbon Dioxide 28.2 26.8 BUN 27 H 19 H Creatinine 1.11 0.90 Calcium 8.4 L 7.8 L Liver Function 01/12/19 01/13/19 Range/Units 12:40 05:21 Total Bilirubin 0.5 0.6 (0.2-1.0) mg/dL AST 26 31 (15-37) U/L ALT 20 23 (12-78) U/L Alkaline Phosphatase 67 62 (45-117) U/L Albumin 3.3 L 3.1 L (3.4-5.0) g/dL <Estevan Rodriguez - 01/13/19 08:04> Abnormal lab results 01/12/19 01/12/19 Range/Units 12:40 12:40 RBC 3.11 L (4.50-5.90) mil/mm3 Hgb 9.8 L (13.0-17.0) gm/dL Hct 27.6 L (39.0-51.0) % Atlantic % (Auto) 11.3 H (0.0-8.0) % Eos % (Auto) 6.8 H (0.0-4.0) % Chloride 111 H (98-107) meq/L Anion Gap 4 L (5-15) meq/L BUN 27 H (7-18) mg/dL Estimated GFR 65 L (>89) mL/min Calcium 8.4 L (8.5-10.1) mg/dL Albumin 3.3 L (3.4-5.0) g/dL Short CBC 01/12/19 Range/Units 12:40 WBC 5.4 (4.0-11.0) th/mm3 Hgb 9.8 L (13.0-17.0) gm/dL Hct 27.6 L (39.0-51.0) % Plt Count 165 (150-450) th/mm3 BMP 01/12/19 12:40 Sodium 143 Potassium 4.6 Chloride 111 H Carbon Dioxide 28.2 BUN 27 H Creatinine 1.11 Calcium 8.4 L Liver Function 01/12/19 Range/Units 12:40 Total Bilirubin 0.5 (0.2-1.0) mg/dL AST 26 (15-37) U/L ALT 20 (12-78) U/L Alkaline Phosphatase 67 (45-117) U/L Albumin 3.3 L (3.4-5.0) g/dL <Razia Wills - 01/12/19 14:11> Caprini VTE Risk Assessment Mathewrini VTE Risk Assessment: Moderate/High Risk (score >= 2) <Razia Wills - 01/13/19 01:10> Caprini Risk Assessment Model: Point Value = 1 Point Value = 2 Point Value = 3 Point Value = 5 Age 41-60 Minor surgery BMI > 25 kg/m2 Swollen legs Varicose veins or History of unexplained or recurrent spontaneous Oral contraceptives or hormone replacement Sepsis (< 1 month) Serious lung disease, including pneumonia (< 1 month) Abnormal pulmonary function Acute myocardial infarction Congestive heart failure (< 1 month) History of inflammatory bowel disease Medical patient at bed rest Age 61-74 Arthroscopic surgery Major open surgery (> 45 min) Laparoscopic surgery (> 45 min) Malignancy Confined to bed (> 72 hours) Immobilizing plaster cast Central venous access Age >= 75 History of VTE Family history of VTE Factor V Leiden Prothrombin [id number] Lupus anticoagulant Anticardiolipin antibodies Elevated serum homocysteine Heparin-induced thrombocytopenia Other congenital or acquired thrombophilia Stroke (< 1 month) Elective arthroplasty Hip, pelvis, or leg fracture Acute spinal cord injury (< 1 month) <Estevan Rodriguez - 01/13/19 08:04> Point Value = 1 Point Value = 2 Point Value = 3 Point Value = 5 Age 41-60 Minor surgery BMI > 25 kg/m2 Swollen legs Varicose veins or History of unexplained or recurrent spontaneous Oral contraceptives or hormone replacement Sepsis (< 1 month) Serious lung disease, including pneumonia (< 1 month) Abnormal pulmonary function Acute myocardial infarction Congestive heart failure (< 1 month) History of inflammatory bowel disease Medical patient at bed rest Age 61-74 Arthroscopic surgery Major open surgery (> 45 min) Laparoscopic surgery (> 45 min) Malignancy Confined to bed (> 72 hours) Immobilizing plaster cast Central venous access Age >= 75 History of VTE Family history of VTE Factor V Leiden Prothrombin [id number] Lupus anticoagulant Anticardiolipin antibodies Elevated serum homocysteine Heparin-induced thrombocytopenia Other congenital or acquired thrombophilia Stroke (< 1 month) Elective arthroplasty Hip, pelvis, or leg fracture Acute spinal cord injury (< 1 month) <Razia Wills - 01/12/19 14:11> Prophylaxis Regimen: Total Risk Factor Score Risk Level Prophylaxis Regimen 0-1 Low Early ambulation 2 Moderate Order ONE of the following: *Sequential Compression Device (SCD) *Heparin 5000 units SQ BID 3-4 Higher Order ONE of the following medications: *Heparin 5000 units SQ TID *Enoxaparin/Lovenox 40 mg SQ daily (WT < 150 kg, CrCl > 30 mL/min) *Enoxaparin/Lovenox 30 mg SQ daily (WT < 150 kg, CrCl > 10-29 mL/min) *Enoxaparin/Lovenox 30 mg SQ BID (WT < 150 kg, CrCl > 30 mL/min) AND/OR *Sequential Compression Device (SCD) 5 or more Highest Order ONE of the following medications: *Heparin 5000 units SQ TID (Preferred with Epidurals) *Enoxaparin/Lovenox 40 mg SQ daily (WT < 150 kg, CrCl > 30 mL/min) *Enoxaparin/Lovenox 30 mg SQ daily (WT < 150 kg, CrCl > 10-29 mL/min) *Enoxaparin/Lovenox 30 mg SQ BID (WT < 150 kg, CrCl > 30 mL/min) AND *Sequential Compression Device (SCD) <Estevan Rodriguez - 01/13/19 08:04> Total Risk Factor Score Risk Level Prophylaxis Regimen 0-1 Low Early ambulation 2 Moderate Order ONE of the following: *Sequential Compression Device (SCD) *Heparin 5000 units SQ BID 3-4 Higher Order ONE of the following medications: *Heparin 5000 units SQ TID *Enoxaparin/Lovenox 40 mg SQ daily (WT < 150 kg, CrCl > 30 mL/min) *Enoxaparin/Lovenox 30 mg SQ daily (WT < 150 kg, CrCl > 10-29 mL/min) *Enoxaparin/Lovenox 30 mg SQ BID (WT < 150 kg, CrCl > 30 mL/min) AND/OR *Sequential Compression Device (SCD) 5 or more Highest Order ONE of the following medications: *Heparin 5000 units SQ TID (Preferred with Epidurals) *Enoxaparin/Lovenox 40 mg SQ daily (WT < 150 kg, CrCl > 30 mL/min) *Enoxaparin/Lovenox 30 mg SQ daily (WT < 150 kg, CrCl > 10-29 mL/min) *Enoxaparin/Lovenox 30 mg SQ BID (WT < 150 kg, CrCl > 30 mL/min) AND *Sequential Compression Device (SCD) <Razia Wills - 01/12/19 14:11> Assessment and Plan - Assessment (1) BRBPR (bright red blood per rectum) Code(s): K62.5 - Hemorrhage of anus and rectum Status: Acute (2) Lower GI bleed Code(s): K92.2 - Gastrointestinal hemorrhage, unspecified Status: Acute (3) Anemia Code(s): D64.9 - Anemia, unspecified Status: Acute (4) HTN (hypertension) Code(s): I10 - Essential (primary) hypertension Status: Acute (5) Diverticulosis Code(s): K57.90 - Diverticulosis of intestine, part unspecified, without perforation or abscess without bleeding Status: Acute (6) Nutrition, metabolism, and development symptoms Code(s): R63.8 - Other symptoms and signs concerning food and fluid intake Status: Acute (7) DVT prophylaxis Status: Acute <Estevan Rodriguez - 01/13/19 08:04> (1) BRBPR (bright red blood per rectum) Code(s): K62.5 - Hemorrhage of anus and rectum Status: Acute (2) Lower GI bleed Code(s): K92.2 - Gastrointestinal hemorrhage, unspecified Status: Acute (3) Anemia Code(s): D64.9 - Anemia, unspecified Status: Acute (4) HTN (hypertension) Code(s): I10 - Essential (primary) hypertension Status: Acute (5) Diverticulosis Code(s): K57.90 - Diverticulosis of intestine, part unspecified, without perforation or abscess without bleeding Status: Acute (6) Nutrition, metabolism, and development symptoms Code(s): R63.8 - Other symptoms and signs concerning food and fluid intake Status: Acute (7) DVT prophylaxis Status: Acute <Razia Wills 01/13/19 01:11> - Assessment and Plan Bright red blood per rectum, suspect lower GI bleed Diverticulosis vs. internal hemorrhoids vs. ischemic colitis vs. neoplasm -CBC showed hemoglobin of 9.8, decreased from 12.9 on 01/09 -CMP WNL -Repeat CBC and CMP tomorrow a.m. -CT abd/pelvis performed on 01/09 showed "numerous diverticuli within the colon mainly the sigmoid colon without signs of diverticulitis" GI consulted, appreciate recommendations Per chart review: Last seen by GI on 01/09 with recommendations for further evaluation of lower GI bleed with colonoscopy. Patient declined procedure prior to discharge stating that he would rather be discharged that day, with plans to follow-up the [place] hospital on 01/12. Patient was discharged in stable condition without active bleeding at that time. Anemia 12/20 BRBPR -See plan above History of diverticulosis -Seen on CT abdomen pelvis performed on 01/09 History of hypertension Takes amlodipine 2.5 mg p.o. daily at home. -Will hold home medication for now FEN Fluids: IV NS at 150 mls/hr Electrolyte: No electrolyte abnormalities noted. Continue to monitor and replete as needed Diet: Clear liquid diet for now DVT prophylaxis SCDs and compression hose dw Dr. Perez and Dr. Rodriguez <Razia Wills - 01/13/19 01:12> - Attending Attestation The exam, history, and the medical decision-making described in the above note were completed with the assistance of the resident physician. I reviewed and agree with the findings presented. I attest that I had a [id number] encounter with the patient on the same day, and personally performed and documented my assessment and findings in the medical record. Discussed and reviewed resident histories as above. i interviewed and examined patient myself on 01/12. Appeared stable, well hydrated, with pain only to deep palpation of LLQ. Suspect diverticular bleed as seen on CT but hasnt been evaluated by colonoscopy for other causes was discharged, went to [place] for outpatient colonoscopy, they told him to come back to [place] as they couldn't do it for a month and he was having continued bleeding. appreciate GI recommendations, starting prep so he can have colonoscopy here. aspirin still held from previous admission. <Estevan Rodriguez - 01/13/19 08:04> <[facility] Park[facility] - Last Filed: 01/13/19 01:11> (3) Anemia Qualifiers: Anemia type: unspecified type Qualified Code(s): D64.9 - Anemia, unspecified (5) Diverticulosis Qualifiers: Diverticulosis site: diverticulosis of large intestine Diverticulosis bleeding: diverticulosis with bleeding Qualified Code(s): K57.31 - Diverticulosis of large intestine without perforation or abscess with bleeding <Estevan Rodriguez - Last Filed: 01/13/19 08:04> (3) Anemia Qualifiers: Anemia type: unspecified type Qualified Code(s): D64.9 - Anemia, unspecified (5) Diverticulosis Qualifiers: Diverticulosis site: diverticulosis of large intestine Diverticulosis bleeding: diverticulosis with bleeding Qualified Code(s): K57.31 - Diverticulosis of large intestine without perforation or abscess with bleeding <[place] [id number] - Last Filed: 01/13/19 01:11> (3) Anemia Qualifiers: Anemia type: unspecified type Qualified Code(s): D64.9 - Anemia, unspecified (5) Diverticulosis Qualifiers: Diverticulosis site: diverticulosis of large intestine Diverticulosis bleeding: diverticulosis with bleeding Qualified Code(s): K57.31 - Diverticulosis of large intestine without perforation or abscess with bleeding <Estevan Rodriguez - Last Filed: 01/13/19 08:04> (3) Anemia Qualifiers: Anemia type: unspecified type Qualified Code(s): D64.9 - Anemia, unspecified (5) Diverticulosis Qualifiers: Diverticulosis site: diverticulosis of large intestine Diverticulosis bleeding: diverticulosis with bleeding Qualified Code(s): K57.31 - Diverticulosis of large intestine without perforation or abscess with bleeding
[2019-01-12] MEDS ORDERED: Acetaminophen 325 MG Tablet PO PRN (14:42)
[2019-01-12] MEDS: Sod Chloride 0.9% Inj 1,000 ML IV.CONT SCH ×2 (15:13→22:15)
[2019-01-12] MEDS ORDERED: PEG 3350/E-Lyte Soln 4000 ML Bottle PO ONE (20:00)
--- NOTE | 2019-01-12 21:15 | P.CONGI ---
History of Present Illness Consult date: 01/12/19 Consult reason: Bright red blood per rectum GI bleed Chief complaint: lower GI bleeding History of Present Illness: Patient is a pleasant 73-year-old male with past medical history significant for hypertension. Surgical history significant for right hip replacement. Patient presented to [facility] emergency room with report of bright red blood per rectum. States last colonoscopy 4-5 years ago. Denies dysphagia or difficulty swallowing. Denies odynophagia or unintended weight loss. Denies diarrhea or constipation. Reports left lower quadrant abdominal pain that radiates to suprapubic area. States he had bright red blood per rectum on Saturday--states it consisted of bloody diarrhea for an estimated 7-8 episodes. Patient denies dizziness lightheadedness. Patient states he drinks alcohol occasionally and socially denies any illicit drug use but does report being a former smoker quitting in 1981. Patient denies the use of NSAIDs. Our service has been consulted to evaluate patient for GI bleeding Review of Systems All other systems reviewed negative except as stated in HPI PMFSH - History History Provided By: Patient - Medical History Medical History: Medical History (Last Reviewed 01/12/19 @ 15:09 by Estevan Rodriguez MD) Hypertension - Surgical History Surgical History: Surgical History (Last Reviewed 01/12/19 @ 20:15 by Razia Fisher R1, , R1) History of right hip replacement - Tobacco History Second Hand Smoke Exposure: No Smoking Status: Never smoker Tobacco Type: Pipe, Cigars - Alcohol History How Often Do You Have a Drink Containing Alcohol: 2 to 4 times a month - Substance Use History Substance History: No History of Abuse - Travel History Recent Travel in the [place] Within the Last 8 Weeks: No Recent Travel Out of the Country Within the Last 8 Weeks: No - Immunization History Tetanus Immunization: <5 Years Medications and Allergies Active Medications: Active Medications Acetaminophen (Tylenol) 650 mg PO Q4H PRN PRN Reason: Temp > 100.4 Sodium Chloride (Ns Inj) 1,000 mls @ 150 mls/hr IV.CONT .Q6H40M XIAO Last Admin: 01/12/19 15:13 Dose: 150 mls/hr Ondansetron HCl (Zofran Inj) 4 mg IV.PUSH Q6H PRN PRN Reason: NAUSEA OR VOMITING Sodium Chloride (Ns Flush) 2 ml IV.FLUSH BID XIAO Sodium Chloride (Ns Flush) 2 ml IV.FLUSH PRN PRN PRN Reason: FLUSH AFTER USING IV ACCESS Allergies Allergy/AdvReac Type Severity Reaction Status Date / Time Sulfa (Sulfonamide Allergy Severe RASH Verified 01/12/19 11:38 Antibiotics) Home Medications Medication Instructions Recorded Confirmed Type amlodipine 2.5 mg PO DAILY 01/09/19 01/12/19 History Exam Vital signs: Vital Signs 01/12/19 10:21 01/12/19 11:22 01/12/19 14:09 Temperature 97.6 F Pulse Rate 74 66 66 Respiratory Rate 17 18 18 Blood Pressure 130/58 L 130/63 103/72 Pulse Oximetry 96 99 95 01/12/19 17:45 01/12/19 19:38 Temperature Pulse Rate 52 L 57 L Respiratory Rate 18 18 Blood Pressure 143/69 H 134/78 Pulse Oximetry 100 Intake & Output 01/12/19 01/12/19 01/13/19 06:59 18:59 06:59 Weight 110.677 kg - Constitutional no acute distress, cooperative - Routine HEENT Exam Head: Present: normocephalic ENT: Present: mucous membranes moist - Routine Respiratory Exam Present: CTA bilaterally. Absent: accessory muscle use - Routine Cardiovascular Exam Present: RRR - Routine Skin Exam Present: dry, warm - Routine Neurological Exam Present: alert, oriented X3 Results - Labs CBC & Chem 7: 01/12/19 12:40 01/12/19 12:40 Labs: Laboratory Results - last 24 hr 01/12/19 01/12/19 01/12/19 12:40 12:40 12:40 WBC 5.4 RBC 3.11 L Hgb 9.8 L Hct 27.6 L MCV 88.8 MCH 31.5 MCHC 35.4 RDW 13.8 Plt Count 165 MPV 7.3 Neut % (Auto) 57.7 Lymph % (Auto) 23.7 [place] % (Auto) 11.3 H Eos % (Auto) 6.8 H Baso % (Auto) 0.5 Neut # (Auto) 3.1 Lymph # (Auto) 1.3 [place] # (Auto) 0.6 Eos # (Auto) 0.4 Baso # (Auto) 0.0 WBC Differential . Differential Comment Auto diff final PT 9.8 INR 1.0 APTT 24.6 Sodium 143 Potassium 4.6 Chloride 111 H Carbon Dioxide 28.2 Anion Gap 4 L BUN 27 H Creatinine 1.11 Estimated GFR 65 L Random Glucose 100 Calcium 8.4 L Magnesium 2.3 Total Bilirubin 0.5 AST 26 ALT 20 Alkaline Phosphatase 67 Total Protein 6.5 Albumin 3.3 L Assessment and Plan (1) Diverticulosis Status: Acute Code(s): K57.90 - Diverticulosis of intestine, part unspecified , without perforation or abscess without bleeding (2) Lower GI bleed Status: Acute Code(s): K92.2 - Gastrointestinal hemorrhage, unspecified (3) BRBPR (bright red blood per rectum) Status: Acute Code(s): K62.5 - Hemorrhage of anus and rectum - Plan Patient is a pleasant 73-year-old male with past medical history significant for hypertension. Surgical history significant for right hip replacement. Patient presented to [facility] emergency room with report of bright red blood per rectum. States last colonoscopy 4-5 years ago. Denies dysphagia or difficulty swallowing. Denies odynophagia or unintended weight loss. Denies diarrhea or constipation. Reports left lower quadrant abdominal pain that radiates to suprapubic area. States he had bright red blood per rectum on Saturday--states it consisted of bloody diarrhea for an estimated 7-8 episodes. Patient denies dizziness lightheadedness. Patient states he drinks alcohol occasionally and socially denies any illicit drug use but does report being a former smoker quitting in 1981. Patient denies the use of NSAIDs. Our service has been consulted to evaluate patient for GI bleeding GI bleeding Bright red blood per rectum--possibly diverticular in nature 01/09/2019 CT abdomen and pelvis reveal the following--Fatty liver, diverticulosis, renal cysts. Hemoglobin 9.8 hematocrit 27.6 platelet count 165 LFTs within normal limits Plan -Clear liquid diet -N.p.o. after midnight -GoLYTELY prep -Avoid NSAIDs or anticoagulant -Monitor for bleeding -Monitor hemoglobin and hematocrit -Obtain consent for colonoscopy -Supportive care -Further recommendations to follow This patient has been seen by myself and Dr. Meadows and this note is written on his behalf - Attending Attestation Dr. Meadows (1) Diverticulosis Qualifiers: Diverticulosis site: diverticulosis of large intestine Diverticulosis bleeding: diverticulosis with bleeding Qualified Code(s): K57.31 - Diverticulosis of large intestine without perforation or abscess with bleeding
[2019-01-13] MEDS: Sod Chloride 0.9% Inj 1,000 ML IV.CONT SCH ×2 (04:55→20:21)
[2019-01-13 07:00] LABS: Baso % (Auto) 0.7 % (0.0-2.0); Eos # (Auto) 0.5 th/mm3 (0.0-0.4); Eos % (Auto) 9.7 % (0.0-4.0); Hematocrit 27.1 % (39.0-51.0); Hemoglobin 9.5 gm/dL (13.0-17.0); Lymph # (Auto) 1.2 th/mm3 (1.0-4.8); Lymph % (Auto) 24.7 % (9.0-44.0); Mean Corpuscular Hemoglobin 30.9 pg (27.0-34.0); Mean Corpuscular Volume 88.1 fL (80.0-100.0); Mean Platelet Volume 7.9 fL (7.0-11.0); Mono # (Auto) 0.5 th/mm3 (0.0-0.9); Mono % (Auto) 10.8 % (0.0-8.0); Neut # (Auto) 2.5 th/mm3 (1.8-7.7); Neut % (Auto) 54.1 % (16.0-70.0); Platelet Count 157 th/mm3 (150-450); Red Blood Count 3.08 mil/mm3 (4.50-5.90); Red Cell Distribution Width 13.3 % (11.6-17.2); White Blood Count 4.7 th/mm3 (4.0-11.0)
[2019-01-13 07:18] LABS: Alanine Aminotransferase 23 U/L (12-78); Albumin 3.1 g/dL (3.4-5.0); Anion Gap 4 meq/L (5-15); Aspartate Aminotransferase 31 U/L (15-37); Blood Urea Nitrogen 19 mg/dL (7-18); Calcium 7.8 mg/dL (8.5-10.1); Carbon Dioxide 26.8 meq/L (21.0-32.0); Chloride 112 meq/L (98-107); Glomerular Filtration Rate 83 mL/min (>89); Glucose,Random 80 mg/dL (74-106); Potassium 4.1 meq/L (3.5-5.1); Sodium 143 meq/L (136-145)
[2019-01-13 07:20] LABS: Alkaline Phosphatase 62 U/L (45-117); Total Protein 6.3 g/dL (6.4-8.2)
--- NOTE | 2019-01-13 11:54 | P.PNFP ---
Subjective Interval history: Patient reports feeling well. He complained about his diet overnight. He still complains of bright red bleeding per rectum. He denies any significant abdominal pain, weakness, chest pain or other problems. Patient drank almost all of bowel prep in preparation for colonoscopy later today. <TerryEstevan Santizo A - 01/13/19 14:00> Results - Labs Result diagrams: 01/13/19 05:21 01/13/19 05:21 <MichaelEstevan Neal - 01/13/19 16:58> Abnormal lab results 01/13/19 01/13/19 Range/Units 05:21 05:21 RBC 3.08 L (4.50-5.90) mil/mm3 Hgb 9.5 L (13.0-17.0) gm/dL Hct 27.1 L (39.0-51.0) % [place] % (Auto) 10.8 H (0.0-8.0) % Eos % (Auto) 9.7 H (0.0-4.0) % Eos # (Auto) 0.5 H (0.0-0.4) th/mm3 Chloride 112 H (98-107) meq/L Anion Gap 4 L (5-15) meq/L BUN 19 H (7-18) mg/dL Estimated GFR 83 L (>89) mL/min Calcium 7.8 L (8.5-10.1) mg/dL Total Protein 6.3 L (6.4-8.2) g/dL Albumin 3.1 L (3.4-5.0) g/dL Short CBC 01/13/19 Range/Units 05:21 WBC 4.7 (4.0-11.0) th/mm3 Hgb 9.5 L (13.0-17.0) gm/dL Hct 27.1 L (39.0-51.0) % Plt Count 157 (150-450) th/mm3 BMP 01/13/19 05:21 Sodium 143 Potassium 4.1 Chloride 112 H Carbon Dioxide 26.8 BUN 19 H Creatinine 0.90 Calcium 7.8 L Liver Function 01/13/19 Range/Units 05:21 Total Bilirubin 0.6 (0.2-1.0) mg/dL AST 31 (15-37) U/L ALT 23 (12-78) U/L Alkaline Phosphatase 62 (45-117) U/L Albumin 3.1 L (3.4-5.0) g/dL <Estevan Rodriguez - 01/13/19 16:58> Abnormal lab results 01/12/19 01/12/19 01/13/19 Range/Units 12:40 12:40 05:21 RBC 3.11 L 3.08 L (4.50-5.90) mil/mm3 Hgb 9.8 L 9.5 L (13.0-17.0) gm/dL Hct 27.6 L 27.1 L (39.0-51.0) % [place] % (Auto) 11.3 H 10.8 H (0.0-8.0) % Eos % (Auto) 6.8 H 9.7 H (0.0-4.0) % Eos # (Auto) 0.5 H (0.0-0.4) th/mm3 Chloride 111 H (98-107) meq/L Anion Gap 4 L (5-15) meq/L BUN 27 H (7-18) mg/dL Estimated GFR 65 L (>89) mL/min Calcium 8.4 L (8.5-10.1) mg/dL Total Protein (6.4-8.2) g/dL Albumin 3.3 L (3.4-5.0) g/dL 01/13/19 Range/Units 05:21 RBC (4.50-5.90) mil/mm3 Hgb (13.0-17.0) gm/dL Hct (39.0-51.0) % [place] % (Auto) (0.0-8.0) % Eos % (Auto) (0.0-4.0) % Eos # (Auto) (0.0-0.4) th/mm3 Chloride 112 H (98-107) meq/L Anion Gap 4 L (5-15) meq/L BUN 19 H (7-18) mg/dL Estimated GFR 83 L (>89) mL/min Calcium 7.8 L (8.5-10.1) mg/dL Total Protein 6.3 L (6.4-8.2) g/dL Albumin 3.1 L (3.4-5.0) g/dL Short CBC 01/12/19 01/13/19 Range/Units 12:40 05:21 WBC 5.4 4.7 (4.0-11.0) th/mm3 Hgb 9.8 L 9.5 L (13.0-17.0) gm/dL Hct 27.6 L 27.1 L (39.0-51.0) % Plt Count 165 157 (150-450) th/mm3 BMP 01/12/19 01/13/19 12:40 05:21 Sodium 143 143 Potassium 4.6 4.1 Chloride 111 H 112 H Carbon Dioxide 28.2 26.8 BUN 27 H 19 H Creatinine 1.11 0.90 Calcium 8.4 L 7.8 L Liver Function 01/12/19 01/13/19 Range/Units 12:40 05:21 Total Bilirubin 0.5 0.6 (0.2-1.0) mg/dL AST 26 31 (15-37) U/L ALT 20 23 (12-78) U/L Alkaline Phosphatase 67 62 (45-117) U/L Albumin 3.3 L 3.1 L (3.4-5.0) g/dL <Estevan Magaña A - 01/13/19 11:54> Physical Exam Vital signs: Vital Signs 01/12/19 17:45 01/12/19 19:38 01/12/19 20:00 Temperature Pulse Rate 52 L 57 L Respiratory Rate 18 18 Blood Pressure 143/69 H 134/78 Pulse Oximetry 100 98 01/12/19 21:53 01/13/19 00:00 01/13/19 08:00 Temperature 98.0 F 97.4 F L 97.5 F L Pulse Rate 69 64 64 Respiratory Rate 20 20 20 Blood Pressure 123/70 115/68 124/67 Pulse Oximetry 96 97 96 01/13/19 08:15 01/13/19 12:42 01/13/19 13:20 Temperature 97.7 F 97.5 F L Pulse Rate 62 62 Respiratory Rate 18 20 Blood Pressure 139/78 117/62 Pulse Oximetry 96 96 93 L Intake & Output 01/12/19 01/13/19 01/13/19 18:59 06:59 18:59 Intake Total 1999 350 / 350 Balance 1999 350 / 350 Weight 110.677 kg 114.8 kg Intake: IV 1999 NS Inj 1,000 ML @ 150 mls/hr IV 1999 .CONT .Q6H40M XIAO Rx#:[id number] Anesthesia Amount 350 / 350 Other: # Voids 4 # Bowel Movements 4 <Estevan Rodriguez K - 01/13/19 16:58> Vital Signs 01/12/19 14:09 01/12/19 17:45 01/12/19 19:38 Temperature Pulse Rate 66 52 L 57 L Respiratory Rate 18 18 18 Blood Pressure 103/72 143/69 H 134/78 Pulse Oximetry 95 100 01/12/19 20:00 01/12/19 21:53 01/13/19 00:00 Temperature 98.0 F 97.4 F L Pulse Rate 69 64 Respiratory Rate 20 20 Blood Pressure 123/70 115/68 Pulse Oximetry 98 96 97 01/13/19 08:00 01/13/19 08:15 Temperature 97.5 F L Pulse Rate 64 Respiratory Rate 20 Blood Pressure 124/67 Pulse Oximetry 96 96 Intake & Output 01/12/19 01/13/19 01/13/19 18:59 06:59 18:59 Intake Total 1999 Balance 1999 Weight 110.677 kg 114.8 kg Intake: IV 1999 NS Inj 1,000 ML @ 150 mls/hr IV 1999 .CONT .Q6H40M [facility], [facility]–1983 Rx#:[id number] Other: # Voids 4 # Bowel Movements 4 <Estevan Magaña A - 01/13/19 11:54> Narrative: GENERAL: 73-year-old, well nourished, well developed male laying comfortably down in bed on his phone. In no acute distress. SKIN: Warm and dry. Mild pallor of the skin. HEAD: Atraumatic. Normocephalic. EYES: EMOI. PERRLA. No scleral icterus. No injection or drainage. ENT: No nasal bleeding or discharge. Mucous membranes moist. Airway patent. CARDIOVASCULAR: Regular rate and rhythm. No murmur. RESPIRATORY: No accessory muscle use. Clear to auscultation with equal breath sounds. No crackles, wheeze, rales or rhonchi. GASTROINTESTINAL: Abdomen soft, mildly tender in suprapubic region, nondistended. No guarding, no rebound. Hepatic and splenic margins not palpable. MUSCULOSKELETAL: Extremities without clubbing, cyanosis, or edema. No obvious deformities. No calf tenderness. NEUROLOGICAL: Awake and alert. No obvious cranial nerve deficits. Motor grossly within normal limits. Five out of 5 muscle strength in the arms and legs. Normal speech. PSYCHIATRIC: Appropriate mood and affect; insight and judgment normal. <Estevan Magaña - 01/13/19 14:00> Assessment and Plan - Assessment (1) BRBPR (bright red blood per rectum) Code(s): K62.5 - Hemorrhage of anus and rectum Status: Acute (2) Lower GI bleed Code(s): K92.2 - Gastrointestinal hemorrhage, unspecified Status: Acute (3) Anemia Code(s): D64.9 - Anemia, unspecified Status: Acute (4) HTN (hypertension) Code(s): I10 - Essential (primary) hypertension Status: Acute (5) Diverticulosis Code(s): K57.90 - Diverticulosis of intestine, part unspecified, without perforation or abscess without bleeding Status: Acute (6) Nutrition, metabolism, and development symptoms Code(s): R63.8 - Other symptoms and signs concerning food and fluid intake Status: Acute (7) DVT prophylaxis Status: Acute <Estevan Rodriguez - 01/13/19 16:58> (1) BRBPR (bright red blood per rectum) Code(s): K62.5 - Hemorrhage of anus and rectum Status: Acute (2) Lower GI bleed Code(s): K92.2 - Gastrointestinal hemorrhage, unspecified Status: Acute (3) Anemia Code(s): D64.9 - Anemia, unspecified Status: Acute (4) HTN (hypertension) Code(s): I10 - Essential (primary) hypertension Status: Acute (5) Diverticulosis Code(s): K57.90 - Diverticulosis of intestine, part unspecified, without perforation or abscess without bleeding Status: Acute (6) Nutrition, metabolism, and development symptoms Code(s): R63.8 - Other symptoms and signs concerning food and fluid intake Status: Acute (7) DVT prophylaxis Status: Acute <Estevan Magaña - 01/13/19 13:52> - Assessment and Plan Bright red blood per rectum, suspect lower GI bleed Diverticulosis vs. internal hemorrhoids vs. ischemic colitis vs. neoplasm -CBC showed hemoglobin of 9.8, decreased from 12.9 on 01/09 -CMP stable -Repeat CBC and CMP tomorrow a.m. -CT abd/pelvis performed on 01/09 showed "numerous diverticuli within the colon mainly the sigmoid colon without signs of diverticulitis" GI consulted, appreciate recommendations: Plan -Clear liquid diet -N.p.o. after midnight -GoLYTELY prep -Avoid NSAIDs or anticoagulant -Monitor for bleeding -Monitor hemoglobin and hematocrit -Obtain consent for colonoscopy -Supportive care -Further recommendations to follow -Colonoscopy showed: IMPRESSIONS: 1. Severe diverticulosis was noted in the descending colon and sigmoid colon 2. Retroflexed views revealed internal hemorrhoids Anemia 12/20 BRBPR -See plan above History of diverticulosis -Seen on CT abdomen pelvis performed on 01/09 History of hypertension Takes amlodipine 2.5 mg p.o. daily at home. -Will hold home medication for now FEN Fluids: IV NS at 150 mls/hr Electrolyte: No electrolyte abnormalities noted. Continue to monitor and replete as needed Diet: Clear liquid diet for now DVT prophylaxis SCDs and compression hose dw Dr. Perez and Dr. Rodriguez <Estevan Magaña A - 01/13/19 14:00> - Attending Attestation The exam, history, and the medical decision-making described in the above note were completed with the assistance of the resident physician. I reviewed and agree with the findings presented. I attest that I had a [id number] encounter with the patient on the same day, and personally performed and documented my assessment and findings in the medical record. hgb stable this AM, prep completed. after colonoscopy if nothing will be changed in management could be sent out with education today on diverticulosis, continue holding aspirin, and what to watch for, with close CBC f/u with PCP <Estevan Rodriguez - 01/13/19 16:58> <Estevan Magaña - Last Filed: 01/13/19 13:52> (3) Anemia Qualifiers: Anemia type: unspecified type Qualified Code(s): D64.9 - Anemia, unspecified (5) Diverticulosis Qualifiers: Diverticulosis site: diverticulosis of large intestine Diverticulosis bleeding: diverticulosis with bleeding Qualified Code(s): K57.31 - Diverticulosis of large intestine without perforation or abscess with bleeding <Estevan Rodriguez - Last Filed: 01/13/19 16:58> (3) Anemia Qualifiers: Anemia type: unspecified type Qualified Code(s): D64.9 - Anemia, unspecified (5) Diverticulosis Qualifiers: Diverticulosis site: diverticulosis of large intestine Diverticulosis bleeding: diverticulosis with bleeding Qualified Code(s): K57.31 - Diverticulosis of large intestine without perforation or abscess with bleeding <Estevan Magaña - Last Filed: 01/13/19 13:52> (3) Anemia Qualifiers: Anemia type: unspecified type Qualified Code(s): D64.9 - Anemia, unspecified (5) Diverticulosis Qualifiers: Diverticulosis site: diverticulosis of large intestine Diverticulosis bleeding: diverticulosis with bleeding Qualified Code(s): K57.31 - Diverticulosis of large intestine without perforation or abscess with bleeding <Estevan Rodriguez - Last Filed: 01/13/19 16:58> (3) Anemia Qualifiers: Anemia type: unspecified type Qualified Code(s): D64.9 - Anemia, unspecified (5) Diverticulosis Qualifiers: Diverticulosis site: diverticulosis of large intestine Diverticulosis bleeding: diverticulosis with bleeding Qualified Code(s): K57.31 - Diverticulosis of large intestine without perforation or abscess with bleeding
[2019-01-13] MEDS ORDERED: Chlorhexidine Gluconate 2% 1 Pack (2 Cloths) TOPICAL ONE (12:15)
[2019-01-13] MEDS ORDERED: Metoprolol Tartrate 25 MG Tablet PO ONE (12:15)
[2019-01-13] MEDS ORDERED: Lidocaine PF 1% Inj 5 ML Syringe OTHER ONE (12:43)
[2019-01-13] MEDS ORDERED: Sodium Chlor 0.9% Inj 500 ML IV.SIG SCH (13:00)
--- NOTE | 2019-01-13 13:22 | GIPROC ---
[facility] [address] [facility]. [facility], [address] COLONOSCOPY PROCEDURE REPORT EXAM DATE: 01/13/2019 PATIENT NAME: Jimmy Navarro MR #: [id number] BIRTHDATE: 1945 ENDOSCOPIST: Alphonse Meadows MD ORDER #: [id number] [employer] SUPERVISOR: Roberth Anaya and Monica Robert STATUS: inpatient INDICATIONS: The patient is a 73 yr old male here for a colonoscopy due to rectal bleeding PROCEDURE PERFORMED: Colonoscopy, diagnostic MEDICATIONS: Per Anesthesia and None. PREP QUALITY: poor ESTIMATED BLOOD LOSS: None CONSENT: The patient understands the risks and benefits of the procedure and understands that these risks include, but are not limited to: sedation, allergic reaction, infection, perforation and/or bleeding. Alternative means of evaluation and treatment include, among others: physical exam, x-rays, and/or surgical intervention. The patient elects to proceed with this endoscopic procedure. medical equipment was checked for proper function. Hand hygiene and appropriate measures for infection prevention was taken. After the risks, benefits and alternatives of the procedure were thoroughly explained, Informed consent was verified, confirmed and timeout was successfully executed by the treatment team. A digital exam revealed no abnormalities of the rectum The Pentax [id number] endoscope was introduced through the anus and advanced to the cecum, which was identified by both the appendix and ileocecal valve. The instrument was then slowly withdrawn as the colon was fully examined.Colon p[rep very poor. Colon redundant and tortuous COLON FINDINGS: Severe diverticulosis was noted in the descending colon and sigmoid colon. Retroflexed views revealed medium internal hemorrhoids, and Retroflexed views revealed internal hemorrhoids The scope was then completely withdrawn from the patient and the procedure terminated. PROCEDURE WITHDRAWAL TIME:10minutes ADVERSE EVENTS: There were no complications. IMPRESSIONS: 1. Severe diverticulosis was noted in the descending colon and sigmoid colon 2. Retroflexed views revealed internal hemorrhoids RECOMMENDATIONS: Monitor labs Supportive tx RECALL: Return 6 months Colonoscopy Alphonse Meadows MD eSigned: Alphonse Meadows MD 01/13/2019 1:22 PM cc: PATIENT NAME: Jimmy Navarro MR#: [id number]
--- NOTE | 2019-01-13 20:30 | ECG ---
Date Performed: 01/13/2019 Time Performed: 07:26:21 PTAGE: 73 years EKG: Sinus rhythm WITH FIRST DEGREE AV BLOCK NONSPECIFIC T-WAVE ABNORMALITY ABNORMAL ECG PREVIOUS TRACING : 10/27/2017 09.28 Since the previous tracing, no significant change noted DOCTOR: Lauren Keith Interpretating Date/Time 01/13/2019 20:30:13
== END 2019-01-13 16:34 | disposition home or self-care (01) | DRG 378 ==
LOC: NEPD 10:02 → NEDA 16:42 → N07 20:45
PROVIDERS: ADMIT Family Medicine; ATTEND Family Medicine
PROC: COLONOS (2019-01-13 12:43)
CPT/HCPCS: 80053; 83735; 85025; 85610; 85730; 93005; 99285; J2704; J7030; J7120